=== PATIENT | male | born 1975 | race Caucasian/White ===

== ENCOUNTER 2017-04-28 17:07 | Emergency (ER) | payer OTHER ==
[2017-04-28] MEDS ORDERED: HYDROcodone/APAP 5-325MG 1 EACH TAB PO STA (17:17)
--- NOTE | 2017-04-28 17:21 | ED ---
Chest Pain HPI - General Chief Complaint: Chest Pain Stated Complaint: Rib Pain Time Seen by Provider: 04/28/17 17:08 Source: patient, EMS Mode of arrival: EMS - History of Present Illness Initial Comments: 42-year-old male patient presents to emergency department by EMS today for evaluation of left rib pain. Patient states that about 30 minutes ago he was up in a tree, he was standing on a branch attempting to bring down the limb above him. Patient states that the branch he was standing on cracked so he grabbed onto another branch and "bear hugged it ". Patient states that the branch dug into his ribs. Patient states that since then he has been having pain in his left ribs when he takes deep breaths, or moves at all. Patient denies any fall or other injuries. Patient denies any shortness of breath, abdominal pain, back pain, nausea, vomiting, dizziness, or weakness. - Related Data Previous Rx's Medication Instructions Recorded Hydrocodone/Acetaminophen [[place] 1 tab PO Q6HR PRN #15 tab 04/28/17 5-325] Ibuprofen 600 mg PO Q6H PRN #20 tablet 04/28/17 Allergies Allergy/AdvReac Type Severity Reaction Status Date / Time No Known Allergies Allergy Verified 04/28/17 17:42 Review of Systems ROS Statement: Those systems with pertinent positive or pertinent negative responses have been documented in the HPI. ROS Other: All systems not noted in ROS Statement are negative. Past Medical History Past Medical History: No Reported History History of Any Multi-Drug Resistant Organisms: None Reported Past Surgical History: Unable to Obtain Past Psychological History: No Psychological Hx Reported Smoking Status: Current every day smoker Past Alcohol Use History: Heavy Past Drug Use History: None Reported General Exam General appearance: alert, in no apparent distress Head exam: Present: atraumatic, normocephalic, normal inspection Eye exam: Present: normal appearance, PERRL, EOMI. Absent: scleral icterus, conjunctival injection, periorbital swelling Neck exam: Present: normal inspection, full ROM. Absent: tenderness, meningismus, lymphadenopathy Respiratory exam: Present: normal lung sounds bilaterally, other (Tenderness over the left seventh and eighth ribs near the midclavicular line). Absent: respiratory distress, wheezes, rales, rhonchi, stridor Cardiovascular Exam: Present: regular rate, normal rhythm, normal heart sounds. Absent: systolic murmur, diastolic murmur, rubs, gallop, clicks GI/Abdominal exam: Present: soft, normal bowel sounds. Absent: distended, tenderness, guarding, rebound, rigid Extremities exam: Present: normal inspection, full ROM, normal capillary refill. Absent: tenderness, pedal edema, joint swelling, calf tenderness Back exam: Present: normal inspection. Absent: tenderness, vertebral tenderness Neurological exam: Present: alert, oriented X3, CN II-XII intact Psychiatric exam: Present: normal affect, normal mood Skin exam: Present: warm, dry, intact, normal color. Absent: rash Course Vital Signs 04/28/17 04/28/17 17:08 18:05 Temperature 98.1 F 98.3 F Pulse Rate 73 66 Respiratory 20 20 Rate Blood Pressure 137/74 136/83 O2 Sat by Pulse 97 97 Oximetry Chest Pain MDM - MDM 42-year-old male patient presented to the emergency department for evaluation of left rib pain after injury. Chest x-ray was performed and showed no acute cardiopulmonary process, x-ray left ribs are obtained showed no acute osseous abnormalities. She'll be discharged home with prescription for ibuprofen as well as [place] for pain management. Patient also given instructions regarding coughing and deep breathing. Patient will be given incentive spirometer. Patient injected to follow-up with his primary care physician one to 2 days for recheck. Patient instructed to return for any new, worsening, or concerning symptoms. Patient verbalizes understanding and agrees with this plan. Disposition Clinical Impression: Rib pain on left side Disposition: HOME SELF-CARE Condition: Good Instructions: Costochondritis (ED) Additional Instructions: Splint area with pillow. Perform coughing and deep breathing exercises at least 10 times per hour all week. Follow up with primary care physician in one to 2 days for recheck. Return for any new, worsening, or concerning symptoms. Prescriptions: Hydrocodone/Acetaminophen [[place] 5-325] 1 tab PO Q6HR PRN #15 tab PRN Reason: Pain Ibuprofen 600 mg PO Q6H PRN #20 tablet PRN Reason: Pain Referrals: None,Stated [Primary Care Provider] - 1-2 days Time of Disposition: 18:22
--- NOTE | 2017-04-28 17:44 | XR ---
EXAMINATION TYPE: XR ribs LT w pa chest xray DATE OF EXAM: 04/28/2017 CLINICAL HISTORY: Chest and left-sided rib pain after fall from tree injury. TECHNIQUE: Single frontal view of the chest is obtained. A frontal and oblique images of the left-fan ed ribs are acquired. COMPARISON: None FINDINGS: There is no focal air space opacity, pleural effusion, or pneumothorax seen. The cardiac silhouette size is within normal limits. The osseous structures are intact. Dedicated images of the left-sided ribs show no acute displaced left-sided rib fracture. Overlying so ft tissue is unremarkable. IMPRESSION: No acute cardiopulmonary process. No acute displaced left-sided rib fractures are eviden t.
[2017-04-28 18:39] VITALS: BP 120/73; PULSE 64; RESP 18; TEMP 97.5
== END 2017-04-28 18:47 | disposition home or self-care (01) ==
LOC: EC 17:07
DX: R07.81 Pleurodynia (principal); F17.200 Nicotine dependence, unspecified, uncomplicated; X50.9XXA Other and unspecified overexertion or strenuous movements or postures, initial encounter; Y93.H2 Activity, gardening and landscaping
CPT/HCPCS: 99284

== ENCOUNTER 2017-12-24 16:56 | Emergency (ER) | payer OTHER ==
--- NOTE | 2017-12-24 17:19 | ED ---
General Adult HPI - General Source: patient, EMS, RN notes reviewed, old records reviewed Mode of arrival: EMS <Paul Washburn - Last Filed: 12/24/17 18:45> <Marcelino Renteria - Last Filed: 12/25/17 04:33> - General Chief complaint: Psychiatric Symptoms Stated complaint: EPS eval Time Seen by Provider: 12/24/17 17:14 - History of Present Illness Initial comments: This is a 43-year-old male the ER for evaluation. Patient comes in for suicidal thoughts, alcohol intoxication. Chest pain. Patient has no significant heart history. Symptoms for a week as far as chest pain. Patient presents secondary to mother's and has been suicidal since (Paul Washburn) - Related Data Home Medications Medication Instructions Recorded Confirmed No Known Home Medications [No 12/24/17 12/24/17 Known Home Medications] Allergies Allergy/AdvReac Type Severity Reaction Status Date / Time No Known Allergies Allergy Verified 12/24/17 17:18 Review of Systems ROS Other: All systems not noted in ROS Statement are negative. <Paul Washburn - Last Filed: 12/24/17 18:45> ROS Other: All systems not noted in ROS Statement are negative. <Marcelino Renteria - Last Filed: 12/25/17 04:33> ROS Statement: Those systems with pertinent positive or pertinent negative responses have been documented in the HPI. Past Medical History Past Medical History: No Reported History History of Any Multi-Drug Resistant Organisms: None Reported Past Surgical History: Unable to Obtain Past Psychological History: No Psychological Hx Reported Smoking Status: Current every day smoker Past Alcohol Use History: Heavy Past Drug Use History: None Reported <Paul Washburn - Last Filed: 12/24/17 18:45> General Exam General appearance: alert, in no apparent distress Head exam: Present: atraumatic, normocephalic, normal inspection Eye exam: Present: normal appearance, PERRL, EOMI. Absent: scleral icterus, conjunctival injection, periorbital swelling ENT exam: Present: normal exam, mucous membranes moist Neck exam: Present: normal inspection. Absent: tenderness, meningismus, lymphadenopathy Respiratory exam: Present: normal lung sounds bilaterally. Absent: respiratory distress, wheezes, rales, rhonchi, stridor Cardiovascular Exam: Present: regular rate, normal rhythm, normal heart sounds. Absent: systolic murmur, diastolic murmur, rubs, gallop, clicks GI/Abdominal exam: Present: soft, normal bowel sounds. Absent: distended, tenderness, guarding, rebound, rigid Extremities exam: Present: normal inspection, full ROM, normal capillary refill. Absent: tenderness, pedal edema, joint swelling, calf tenderness Back exam: Present: normal inspection Neurological exam: Present: alert, oriented X3, CN II-XII intact Psychiatric exam: Present: normal affect, normal mood Skin exam: Present: warm, dry, intact, normal color. Absent: rash <Paul Washburn - Last Filed: 12/24/17 18:45> Vital Signs 12/24/17 12/24/17 12/24/17 16:58 17:20 18:53 Temperature 97.6 F Pulse Rate 81 75 72 Respiratory 18 18 18 Rate Blood Pressure 175/119 146/90 142/77 O2 Sat by Pulse 97 96 Oximetry 12/24/17 12/24/17 12/24/17 19:25 20:20 22:27 Temperature Pulse Rate 68 82 87 Respiratory 16 16 16 Rate Blood Pressure 135/77 138/89 132/66 O2 Sat by Pulse 97 94 L 91 L Oximetry 12/24/17 12/25/17 12/25/17 23:25 00:20 02:12 Temperature Pulse Rate 94 88 87 Respiratory 17 16 15 Rate Blood Pressure 124/63 124/63 131/74 O2 Sat by Pulse 97 93 L 94 L Oximetry 12/25/17 02:20 Temperature Pulse Rate 88 Respiratory 16 Rate Blood Pressure 146/69 O2 Sat by Pulse 97 Oximetry EKG Findings - EKG Comments: EKG Findings:: EKG shows normal sinus rhythm rate of 66, VT 134, QRS 94, QTC 419 <Paul Washburn - Last Filed: 12/24/17 18:45> Medical Decision Making - Lab Data Result diagrams: 12/24/17 18:00 12/24/17 18:00 <Paul Washburn - Last Filed: 12/24/17 18:45> - Lab Data Result diagrams: 12/24/17 18:00 12/24/17 18:00 <Marcelino Renteria - Last Filed: 12/25/17 04:33> - Lab Data Lab Results 12/24/17 12/24/17 12/24/17 Range/Units 17:55 18:00 18:00 WBC 13.3 H (3.8-10.6) k/uL RBC 5.60 (4.30-5.90) m/uL Hgb 17.6 H (13.0-17.5) gm/dL Hct 52.5 (39.0-53.0) % MCV 93.6 (80.0-100.0) fL MCH 31.5 (25.0-35.0) pg MCHC 33.6 (31.0-37.0) g/dL RDW 13.0 (11.5-15.5) % Plt Count 300 (150-450) k/uL Neutrophils % 67 % Lymphocytes % 25 % Monocytes % 4 % Eosinophils % 2 % Basophils % 1 % Neutrophils # 8.9 H (1.3-7.7) k/uL Lymphocytes # 3.4 (1.0-4.8) k/uL Monocytes # 0.5 (0-1.0) k/uL Eosinophils # 0.3 (0-0.7) k/uL Basophils # 0.1 (0-0.2) k/uL PT (9.0-12.0) sec INR (<1.2) APTT (22.0-30.0) sec Sodium (137-145) mmol/L Potassium (3.5-5.1) mmol/L Chloride (98-107) mmol/L Carbon Dioxide (22-30) mmol/L Anion Gap mmol/L BUN (9-20) mg/dL Creatinine (0.66-1.25) mg/dL Est GFR (CKD-EPI)AfAm (>60 ml/min/1.73 sqM) Est GFR (CKD-EPI)NonAf (>60 ml/min/1.73 sqM) Glucose (74-99) mg/dL Calcium (8.4-10.2) mg/dL Magnesium (1.6-2.3) mg/dL Total Bilirubin (0.2-1.3) mg/dL AST (17-59) U/L ALT (21-72) U/L Alkaline Phosphatase (38-126) U/L Total Creatine Kinase 217 H (55-170) U/L CK-MB (CK-2) 1.3 (0.0-2.4) ng/mL CK-MB (CK-2) Rel Index 0.6 Troponin I <0.012 (0.000-0.034) ng/mL Total Protein (6.3-8.2) g/dL Albumin (3.5-5.0) g/dL Lipase (23-300) U/L Urine Opiates Screen Not Detected (NotDetected) Ur Oxycodone Screen Not Detected (NotDetected) Urine Methadone Screen Not Detected (NotDetected) Ur Propoxyphene Screen Not Detected (NotDetected) Ur Barbiturates Screen Not Detected (NotDetected) U Tricyclic Antidepress Not Detected (NotDetected) Ur Phencyclidine Scrn Not Detected (NotDetected) Ur Amphetamines Screen Not Detected (NotDetected) U Methamphetamines Scrn Not Detected (NotDetected) U Benzodiazepines Scrn Not Detected (NotDetected) Urine Cocaine Screen Not Detected (NotDetected) U Marijuana (THC) Screen Not Detected (NotDetected) 12/24/17 12/24/17 Range/Units 18:00 18:00 WBC (3.8-10.6) k/uL RBC (4.30-5.90) m/uL Hgb (13.0-17.5) gm/dL Hct (39.0-53.0) % MCV (80.0-100.0) fL MCH (25.0-35.0) pg MCHC (31.0-37.0) g/dL RDW (11.5-15.5) % Plt Count (150-450) k/uL Neutrophils % % Lymphocytes % % Monocytes % % Eosinophils % % Basophils % % Neutrophils # (1.3-7.7) k/uL Lymphocytes # (1.0-4.8) k/uL Monocytes # (0-1.0) k/uL Eosinophils # (0-0.7) k/uL Basophils # (0-0.2) k/uL PT 10.0 (9.0-12.0) sec INR 1.0 (<1.2) APTT 24.7 (22.0-30.0) sec Sodium 147 H (137-145) mmol/L Potassium 3.9 (3.5-5.1) mmol/L Chloride 104 (98-107) mmol/L Carbon Dioxide 23 (22-30) mmol/L Anion Gap 20 mmol/L BUN 8 L (9-20) mg/dL Creatinine 0.70 (0.66-1.25) mg/dL Est GFR (CKD-EPI)AfAm >90 (>60 ml/min/1.73 sqM) Est GFR (CKD-EPI)NonAf >90 (>60 ml/min/1.73 sqM) Glucose 82 (74-99) mg/dL Calcium 9.5 (8.4-10.2) mg/dL Magnesium 2.2 (1.6-2.3) mg/dL Total Bilirubin 0.3 (0.2-1.3) mg/dL AST 34 (17-59) U/L ALT 23 (21-72) U/L Alkaline Phosphatase 109 (38-126) U/L Total Creatine Kinase (55-170) U/L CK-MB (CK-2) (0.0-2.4) ng/mL CK-MB (CK-2) Rel Index Troponin I (0.000-0.034) ng/mL Total Protein 8.4 H (6.3-8.2) g/dL Albumin 5.1 H (3.5-5.0) g/dL Lipase 297 (23-300) U/L Urine Opiates Screen (NotDetected) Ur Oxycodone Screen (NotDetected) Urine Methadone Screen (NotDetected) Ur Propoxyphene Screen (NotDetected) Ur Barbiturates Screen (NotDetected) U Tricyclic Antidepress (NotDetected) Ur Phencyclidine Scrn (NotDetected) Ur Amphetamines Screen (NotDetected) U Methamphetamines Scrn (NotDetected) U Benzodiazepines Scrn (NotDetected) Urine Cocaine Screen (NotDetected) U Marijuana (THC) Screen (NotDetected) Disposition <Paul Washburn - Last Filed: 12/24/17 18:45> <Marcelino Renteria - Last Filed: 12/25/17 04:33> Clinical Impression: Alcohol intoxication, Adjustment reaction Disposition: HOME SELF-CARE Condition: Good Instructions: Alcohol Intoxication (ED), Mood Disorders (ED) Referrals: None,Stated [Primary Care Provider] - 1-2 days
[2017-12-24] MEDS ORDERED: SODIUM CHLORIDE 0.9% 1,000 ML IV STA (18:04)
[2017-12-24 18:12] LABS: Amphetamine Screen,Urine Not Detected (NotDetected); Barbiturate Screen,Urine Not Detected (NotDetected); Benzodiazepines Screen,Urine Not Detected (NotDetected); Cocaine Screen,Urine Not Detected (NotDetected); Methadone Screen, Urine Not Detected (NotDetected); Opiate Screen,Urine Not Detected (NotDetected); Oxycodone Screen, Urine Not Detected (NotDetected); Phencyclidine Screen,Urine Not Detected (NotDetected); Tricyclic Antidepressant,Urine Not Detected (NotDetected); Urn Cannabinoid Scrn Not Detected (NotDetected)
[2017-12-24 18:29] LABS: Basophils # (A) 0.1 k/uL (0-0.2); Basophils % (A) 1 %; Eosinophils # (A) 0.3 k/uL (0-0.7); Eosinophils % (A) 2 %; HCT 52.5 % (39.0-53.0); HGB 17.6 gm/dL (13.0-17.5); Lymphocytes # (A) 3.4 k/uL (1.0-4.8); Lymphocytes % (A) 25 %; MCH 31.5 pg (25.0-35.0); MCHC 33.6 g/dL (31.0-37.0); MCV 93.6 fL (80.0-100.0); Mean Platelet Volume 7.5; Monocytes # (A) 0.5 k/uL (0-1.0); Monocytes % (A) 4 %; Neutrophils # (A) 8.9 k/uL (1.3-7.7); Neutrophils % (A) 67 %; Platelet Count 300 k/uL (150-450); WBC 13.3 k/uL (3.8-10.6)
[2017-12-24 18:35] LABS: ALT 23 U/L (21-72); AST 34 U/L (17-59); Albumin 5.1 g/dL (3.5-5.0); Alkaline Phosphatase 109 U/L (38-126); Anion Gap 20 mmol/L; Blood Urea Nitrogen 8 mg/dL (9-20); Calcium 9.5 mg/dL (8.4-10.2); Carbon Dioxide 23 mmol/L (22-30); Chloride 104 mmol/L (98-107); Glucose 82 mg/dL (74-99); Lipase 297 U/L (23-300); Magnesium 2.2 mg/dL (1.6-2.3); Potassium 3.9 mmol/L (3.5-5.1); Sodium 147 mmol/L (137-145); Total Bilirubin 0.3 mg/dL (0.2-1.3); Total Protein 8.4 g/dL (6.3-8.2)
[2017-12-24 18:37] LABS: Creatine Kinase 217 U/L (55-170)
[2017-12-24 18:42] LABS: Partial Thromboplastin Time 24.7 sec (22.0-30.0)
[2017-12-24 18:50] LABS: Creatine Kinase MB 1.3 ng/mL (0.0-2.4); Troponin I <0.012 ng/mL (0.000-0.034)
--- NOTE | 2017-12-24 19:01 | XR ---
EXAMINATION TYPE: XR chest 2V DATE OF EXAM: 12/24/2017 COMPARISON: 04/28/2017 HISTORY: Chest pain TECHNIQUE: Frontal and lateral views of the chest are obtained. FINDINGS: Heart and mediastinum are normal. Lungs are clear of infiltrate. There is no pleural effus ion. Bony thorax is intact. IMPRESSION: No active cardiopulmonary disease. No change.
[2017-12-24] MEDS ORDERED: NICOTINE 21MG/24HR PATCH TRANSDERM STA (20:56)
[2017-12-25 02:21] VITALS: RESP 16
[2017-12-25 04:57] VITALS: BP 142/76; PULSE 96; TEMP 98
== END 2017-12-25 05:06 | disposition home or self-care (01) ==
LOC: EC 16:56
DX: F10.120 Alcohol abuse with intoxication, uncomplicated (principal); F43.20 Adjustment disorder, unspecified; R07.9 Chest pain, unspecified; F17.200 Nicotine dependence, unspecified, uncomplicated
CPT/HCPCS: 99285; 96360; 96361 ×8; 82075; 36415; 93005; 80053; 82550; 82553; 83690; 83735; 84484; 85025; 85610; 85730; 80306; 71046; S4990

== ENCOUNTER 2021-06-10 11:42 | Emergency (ER) | payer OTHER ==
[2021-06-10] MEDS ORDERED: SODIUM CHLORIDE 0.9% 1,000 ML IV STA (11:50)
[2021-06-10 12:08] LABS: Basophils # (A) 0.1 k/uL (0-0.2); Basophils % (A) 1 %; Eosinophils # (A) 0.3 k/uL (0-0.7); Eosinophils % (A) 4 %; HCT 48.1 % (39.0-53.0); HGB 15.8 gm/dL (13.0-17.5); Lymphocytes # (A) 1.8 k/uL (1.0-4.8); Lymphocytes % (A) 25 %; MCH 32.9 pg (25.0-35.0); MCHC 32.9 g/dL (31.0-37.0); Monocytes # (A) 0.4 k/uL (0-1.0); Monocytes % (A) 6 %; Neutrophils # (A) 4.3 k/uL (1.3-7.7); Neutrophils % (A) 61 %; Platelet Count 252 k/uL (150-450); RBC 4.81 m/uL (4.30-5.90); RDW 13.2 % (11.5-15.5)
--- NOTE | 2021-06-10 12:08 | ED ---
General Adult HPI - General Chief complaint: Chest Pain Stated complaint: ETOH/Chest pain Time Seen by Provider: 06/10/21 11:43 Source: patient, EMS, RN notes reviewed, old records reviewed Mode of arrival: EMS Limitations: no limitations - History of Present Illness Initial comments: 46-year-old male presenting with alcohol intoxication, and chest pain. Patient states he has central chest pain for the past several years. He has this every single day. He admits to consuming a significant amount of alcoholic beverages today. He denies any change in his chest pain. Does not radiate. He has no associated dyspnea. No lower extremity pain or swelling. No abdominal pain nausea or vomiting. - Related Data Home Medications Medication Instructions Recorded Confirmed No Known Home Medications 12/24/17 12/24/17 Allergies Allergy/AdvReac Type Severity Reaction Status Date / Time No Known Allergies Allergy Verified 12/24/17 17:18 Review of Systems ROS Statement: Those systems with pertinent positive or pertinent negative responses have been documented in the HPI. ROS Other: All systems not noted in ROS Statement are negative. Past Medical History Past Medical History: No Reported History History of Any Multi-Drug Resistant Organisms: None Reported Past Surgical History: Unable to Obtain Past Psychological History: No Psychological Hx Reported Smoking Status: Current every day smoker Past Alcohol Use History: Daily, Heavy Past Drug Use History: None Reported General Exam Limitations: no limitations General appearance: alert, appears intoxicated Head exam: Present: atraumatic, normocephalic Eye exam: Present: normal appearance, PERRL ENT exam: Present: mucous membranes dry Neck exam: Present: normal inspection. Absent: tenderness, meningismus Respiratory exam: Present: normal lung sounds bilaterally. Absent: respiratory distress, wheezes Cardiovascular Exam: Present: regular rate, normal rhythm GI/Abdominal exam: Present: soft. Absent: distended, tenderness Extremities exam: Present: normal inspection, normal capillary refill. Absent: pedal edema Neurological exam: Present: alert, oriented X3, CN II-XII intact. Absent: motor sensory deficit Psychiatric exam: Present: agitated Skin exam: Present: warm, dry, intact Course Vital Signs 06/10/21 06/10/21 11:43 12:29 Temperature 98.2 F Pulse Rate 77 89 Respiratory 18 20 Rate Blood Pressure 147/90 123/81 O2 Sat by Pulse 92 L 95 Oximetry EKG Findings - EKG Comments: EKG Findings:: EKG: Normal sinus rhythm, rate of 87, IN interval 136, QRS duration 90, QTC 438, no ST segment elevation. Medical Decision Making - Medical Decision Making 46-year-old male presenting with alcohol intoxication, no suicidal ideation. Patient cooperative with stable vitals. His workup includes EKG which is sinus rhythm without ST segment elevation or ischemic changes. Chest x-ray is clear without focal pneumonia or acute findings. He has a normal CBC, normal CMP, negative troponin. Given the fact that this is been ongoing for many years I feel he can continue to follow up as an outpatient regarding this chest pain. H is alcohol level is 340 he is coherent and able to give detailed history he is accompanied by his girlfriend. She will take the patient home. Return parameters are discussed. - Lab Data Result diagrams: 06/10/21 12:02 06/10/21 12:02 Lab Results 06/10/21 06/10/21 06/10/21 Range/Units 12:02 12:02 12:02 WBC 7.0 (3.8-10.6) k/uL RBC 4.81 (4.30-5.90) m/uL Hgb 15.8 (13.0-17.5) gm/dL Hct 48.1 (39.0-53.0) % MCV 100.0 (80.0-100.0) fL MCH 32.9 (25.0-35.0) pg MCHC 32.9 (31.0-37.0) g/dL RDW 13.2 (11.5-15.5) % Plt Count 252 (150-450) k/uL MPV 7.0 Neutrophils % 61 % Lymphocytes % 25 % Monocytes % 6 % Eosinophils % 4 % Basophils % 1 % Neutrophils # 4.3 (1.3-7.7) k/uL Lymphocytes # 1.8 (1.0-4.8) k/uL Monocytes # 0.4 (0-1.0) k/uL Eosinophils # 0.3 (0-0.7) k/uL Basophils # 0.1 (0-0.2) k/uL PT 10.0 (9.0-12.0) sec INR 0.9 (<1.2) APTT 25.0 (22.0-30.0) sec Sodium 141 (137-145) mmol/L Potassium 4.0 (3.5-5.1) mmol/L Chloride 104 (98-107) mmol/L Carbon Dioxide 24 (22-30) mmol/L Anion Gap 13 mmol/L BUN 4 L (9-20) mg/dL Creatinine 0.62 L (0.66-1.25) mg/dL Est GFR (CKD-EPI)AfAm >90 (>60 ml/min/1.73 sqM) Est GFR (CKD-EPI)NonAf >90 (>60 ml/min/1.73 sqM) Glucose 126 H (74-99) mg/dL Calcium 9.1 (8.4-10.2) mg/dL Magnesium 2.0 (1.6-2.3) mg/dL Total Bilirubin 0.5 (0.2-1.3) mg/dL AST 56 (17-59) U/L ALT 37 (4-49) U/L Alkaline Phosphatase 103 (38-126) U/L Troponin I (0.000-0.034) ng/mL Total Protein 7.4 (6.3-8.2) g/dL Albumin 4.5 (3.5-5.0) g/dL Lipase 220 (23-300) U/L Serum Alcohol 344 H* mg/dL 06/10/21 Range/Units 12:02 WBC (3.8-10.6) k/uL RBC (4.30-5.90) m/uL Hgb (13.0-17.5) gm/dL Hct (39.0-53.0) % MCV (80.0-100.0) fL MCH (25.0-35.0) pg MCHC (31.0-37.0) g/dL RDW (11.5-15.5) % Plt Count (150-450) k/uL MPV Neutrophils % % Lymphocytes % % Monocytes % % Eosinophils % % Basophils % % Neutrophils # (1.3-7.7) k/uL Lymphocytes # (1.0-4.8) k/uL Monocytes # (0-1.0) k/uL Eosinophils # (0-0.7) k/uL Basophils # (0-0.2) k/uL PT (9.0-12.0) sec INR (<1.2) APTT (22.0-30.0) sec Sodium (137-145) mmol/L Potassium (3.5-5.1) mmol/L Chloride (98-107) mmol/L Carbon Dioxide (22-30) mmol/L Anion Gap mmol/L BUN (9-20) mg/dL Creatinine (0.66-1.25) mg/dL Est GFR (CKD-EPI)AfAm (>60 ml/min/1.73 sqM) Est GFR (CKD-EPI)NonAf (>60 ml/min/1.73 sqM) Glucose (74-99) mg/dL Calcium (8.4-10.2) mg/dL Magnesium (1.6-2.3) mg/dL Total Bilirubin (0.2-1.3) mg/dL AST (17-59) U/L ALT (4-49) U/L Alkaline Phosphatase (38-126) U/L Troponin I <0.012 (0.000-0.034) ng/mL Total Protein (6.3-8.2) g/dL Albumin (3.5-5.0) g/dL Lipase (23-300) U/L Serum Alcohol mg/dL Disposition Clinical Impression: Chest pain, Alcohol abuse Disposition: HOME SELF-CARE Condition: Fair Instructions (If sedation given, give patient instructions): Chest Pain (ED), Alcohol Intoxication (ED) Additional Instructions: Please return with worsening or changing symptoms. Please follow up with her primary care physician, You have been provided information regarding AA. Is patient prescribed a controlled substance at d/c from ED?: No Referrals: None,Stated [Primary Care Provider] - 1-2 days Vaishali Martinez MD [REFERRING] - 1-2 days Time of Disposition: 12:56
[2021-06-10 12:21] LABS: INR 0.9 (<1.2)
[2021-06-10 12:23] LABS: ALT 37 U/L (4-49); AST 56 U/L (17-59); African American GFR (CKD) >90 (>60 ml/min/1.73 sqM); Albumin 4.5 g/dL (3.5-5.0); Alkaline Phosphatase 103 U/L (38-126); Anion Gap 13 mmol/L; Blood Urea Nitrogen 4 mg/dL (9-20); Calcium 9.1 mg/dL (8.4-10.2); Carbon Dioxide 24 mmol/L (22-30); Chloride 104 mmol/L (98-107); Glucose 126 mg/dL (74-99); Lipase 220 U/L (23-300); Non-African American GFR(CKD) >90 (>60 ml/min/1.73 sqM); Sodium 141 mmol/L (137-145); Total Bilirubin 0.5 mg/dL (0.2-1.3); Total Protein 7.4 g/dL (6.3-8.2)
--- NOTE | 2021-06-10 12:42 | XR ---
EXAMINATION TYPE: XR chest 2V DATE OF EXAM: 06/10/2021 COMPARISON: 12/24/2017 TECHNIQUE: PA and lateral views submitted. HISTORY: Chest pain FINDINGS: The lungs are clear and there is no pneumothorax, pleural effusion, or focal pneumonia. Heart size normal. No overt failure. Chronic rib deformities and lower involving the right lower rib cage. IMPRESSION: 1. No acute process.
[2021-06-10 12:47] LABS: Alcohol 344 mg/dL
[2021-06-10 13:07] VITALS: BP 120/78; PULSE 81; RESP 16; TEMP 98.1
== END 2021-06-10 13:05 | disposition home or self-care (01) ==
LOC: EC 11:42
DX: R07.9 Chest pain, unspecified (principal); F10.10 Alcohol abuse, uncomplicated; F17.200 Nicotine dependence, unspecified, uncomplicated; Y90.8 Blood alcohol level of 240 mg/100 ml or more
CPT/HCPCS: 36415; 93005; 80053; 83690; 83735; 84484; 85025; 85610; 85730; 71046; 99285; 96360; G0480; 80320

== ENCOUNTER 2021-07-12 21:29 | Emergency (ER) | payer OTHER ==
[2021-07-12 21:53] LABS: Glucose,Whole Blood 98 mg/dL (75-99)
--- NOTE | 2021-07-12 22:20 | ED ---
Psych HPI <Jermain Davison - Last Filed: 07/13/21 09:51> - General Source: EMS, RN notes reviewed, old records reviewed Mode of arrival: EMS Limitations: altered mental status - History of Present Illness MD Complaint: suicidal ideation, feels depressed -: unknown Associated Psychiatric Symptoms: depression, suicidal ideation History of same: Yes Quality: intermittent, getting worse Improves With: none Worsens With: none Context: recent alcohol abuse Associated Symptoms: denies other symptoms Treatments Prior to Arrival: placed on mental health hold If Self Harm: admits thoughts of self harm <Paul Washburn - Last Filed: 07/26/21 02:34> - General Chief Complaint: Psychiatric Symptoms Stated Complaint: Mental Health Time Seen by Provider: 07/12/21 22:18 - History of Present Illness Initial Comments: This is a 46-year-old male to the emergency. Patient has a for psychiatric evaluation and treatment. Patient is under severe stress patient also has significant history of alcohol abuse (Paul Washburn) - Related Data Home Medications Medication Instructions Recorded Confirmed No Known Home Medications 12/24/17 07/12/21 Allergies Allergy/AdvReac Type Severity Reaction Status Date / Time No Known Allergies Allergy Verified 07/12/21 22:47 Review of Systems ROS Other: All systems not noted in ROS Statement are negative. <Jermain Davison - Last Filed: 07/13/21 09:51> ROS Other: All systems not noted in ROS Statement are negative. <Paul Washburn - Last Filed: 07/26/21 02:34> ROS Statement: Those systems with pertinent positive or pertinent negative responses have been documented in the HPI. Past Medical History Past Medical History: No Reported History History of Any Multi-Drug Resistant Organisms: None Reported Past Surgical History: Unable to Obtain Past Psychological History: No Psychological Hx Reported Smoking Status: Current every day smoker Past Alcohol Use History: Daily, Heavy Past Drug Use History: None Reported <Paul Washburn - Last Filed: 07/26/21 02:34> General Exam Limitations: altered mental status General appearance: appears intoxicated, anxious Head exam: Present: atraumatic, normocephalic, normal inspection Eye exam: Present: normal appearance, PERRL, EOMI. Absent: scleral icterus, conjunctival injection, periorbital swelling ENT exam: Present: normal exam, mucous membranes moist Neck exam: Present: normal inspection. Absent: tenderness, meningismus, lymphadenopathy Respiratory exam: Present: normal lung sounds bilaterally. Absent: respiratory distress, wheezes, rales, rhonchi, stridor Cardiovascular Exam: Present: regular rate, normal rhythm, normal heart sounds. Absent: systolic murmur, diastolic murmur, rubs, gallop, clicks GI/Abdominal exam: Present: soft, normal bowel sounds. Absent: distended, tenderness, guarding, rebound, rigid Extremities exam: Present: normal inspection, full ROM, normal capillary refill. Absent: tenderness, pedal edema, joint swelling, calf tenderness Back exam: Present: normal inspection Neurological exam: Present: alert, oriented X3, CN II-XII intact Psychiatric exam: Present: normal affect, normal mood Skin exam: Present: warm, dry, intact, normal color. Absent: rash <Paul Washburn - Last Filed: 07/26/21 02:34> Course <Paul Washburn - Last Filed: 07/26/21 02:34> Vital Signs 07/12/21 07/13/21 07/13/21 22:03 02:28 03:00 Temperature 97.6 F Pulse Rate 62 Respiratory 16 18 18 Rate Blood Pressure 116/71 O2 Sat by Pulse 97 Oximetry 07/13/21 07/13/21 07/13/21 04:00 05:00 06:30 Temperature 97.5 F L Pulse Rate 60 Respiratory 18 18 18 Rate Blood Pressure 103/62 O2 Sat by Pulse 97 Oximetry 07/13/21 07/13/21 07:17 10:34 Temperature Pulse Rate 63 66 Respiratory 18 18 Rate Blood Pressure 119/86 120/69 O2 Sat by Pulse 98 98 Oximetry - Reevaluation(s) Reevaluation #1: Medical record is reviewed Patient was admitted out to lose clinically sober Patient stable for psychiatric evaluation (Paul Washburn) Medical Decision Making <Jermain Davison - Last Filed: 07/13/21 09:51> <Paul Washburn - Last Filed: 07/26/21 02:34> - Medical Decision Making Patient was invited by EPS. They recommended discharge. He did discuss safety plan. Patient is agreeable. (Jermain Davison) 46 male be discharged home after being seen evaluation psychiatry here in the ER (Paul Washburn) - Lab Data Lab Results 07/12/21 Range/Units 21:44 POC Glucose (mg/dL) 98 (75-99) mg/dL POC Glu Helicopter Officer ID Bertin Harmon Disposition Is patient prescribed a controlled substance at d/c from ED?: No <Jermain Davison - Last Filed: 07/13/21 09:51> Is patient prescribed a controlled substance at d/c from ED?: No <Paul Washburn - Last Filed: 07/26/21 02:34> Clinical Impression: Alcoholic intoxication, Suicidal ideation Disposition: HOME SELF-CARE Condition: Good Instructions (If sedation given, give patient instructions): Alcohol Intoxication (ED) Referrals: None,Stated [Primary Care Provider] - 1-2 days
[2021-07-13 02:29] VITALS: RESP 18
[2021-07-13 07:17] VITALS: TEMP 97.5
[2021-07-13 10:35] VITALS: BP 120/69; PULSE 66
== END 2021-07-13 10:34 | disposition home or self-care (01) ==
LOC: EC 21:29
DX: R45.851 Suicidal ideations (principal); F10.129 Alcohol abuse with intoxication, unspecified; F17.200 Nicotine dependence, unspecified, uncomplicated; Y90.9 Presence of alcohol in blood, level not specified
CPT/HCPCS: 36415; 99285

== ENCOUNTER 2021-08-06 21:25 | Emergency (ER) | payer OTHER ==
--- NOTE | 2021-08-06 21:29 | ED ---
Alcohol HPI - General Stated Complaint: ETOH Time Seen by Provider: 08/06/21 21:27 Source: RN notes reviewed, old records reviewed Mode of arrival: EMS Limitations: no limitations - History of Present Illness Initial Comments: This is a 46-year-old male presents today for evaluation. Patient presents to be follow significant alcohol intoxication weakness today patient no nausea vomiting intoxication currently. He was no medical history takes no medications MD Complaint: alcohol intoxication, alcohol dependence Last Drink: just [employer] REP -: hour(s) Previous Visits for Alcohol Intoxication?: Yes Recent Trauma: Yes Associated Symptoms: denies other symptoms Treatments Prior to Arrival: none Chronic Alcohol Use: Yes - Related Data Home Medications Medication Instructions Recorded Confirmed No Known Home Medications 12/24/17 08/06/21 Allergies Allergy/AdvReac Type Severity Reaction Status Date / Time No Known Allergies Allergy Verified 08/06/21 22:25 Review of Systems ROS Statement: Those systems with pertinent positive or pertinent negative responses have been documented in the HPI. ROS Other: All systems not noted in ROS Statement are negative. Past Medical History Past Medical History: No Reported History History of Any Multi-Drug Resistant Organisms: None Reported Past Surgical History: Unable to Obtain Past Psychological History: No Psychological Hx Reported Smoking Status: Current every day smoker Past Alcohol Use History: Daily, Heavy Past Drug Use History: None Reported General Exam General appearance: alert, in no apparent distress, anxious Head exam: Present: atraumatic, normocephalic, normal inspection Eye exam: Present: normal appearance, PERRL, EOMI. Absent: scleral icterus, conjunctival injection, periorbital swelling ENT exam: Present: normal exam, mucous membranes moist Neck exam: Present: normal inspection. Absent: tenderness, meningismus, lymphadenopathy Respiratory exam: Present: normal lung sounds bilaterally. Absent: respiratory distress, wheezes, rales, rhonchi, stridor Cardiovascular Exam: Present: regular rate, normal rhythm, normal heart sounds. Absent: systolic murmur, diastolic murmur, rubs, gallop, clicks GI/Abdominal exam: Present: soft, normal bowel sounds. Absent: distended, tenderness, guarding, rebound, rigid Extremities exam: Present: normal inspection, full ROM, normal capillary refill. Absent: tenderness, pedal edema, joint swelling, calf tenderness Back exam: Present: normal inspection Neurological exam: Present: alert, oriented X3, CN II-XII intact Psychiatric exam: Present: normal affect, normal mood Skin exam: Present: warm, dry, intact, normal color. Absent: rash Course Vital Signs 08/06/21 08/06/21 08/07/21 21:29 23:33 05:33 Temperature 98.2 F Pulse Rate 84 84 74 Respiratory 22 22 16 Rate Blood Pressure 169/109 156/84 O2 Sat by Pulse 99 96 96 Oximetry - Reevaluation(s) Reevaluation #1: Medical records reviewed Patient has significant improvement here in the emergency department Patient informed results and questions answered Reevaluation #2: Patient currently awake alert able ambulate without difficulty Medical Decision Making - Medical Decision Making 46 male to the emergency department for evaluation of severe alcohol intoxication. Not homicidal or suicidal and: Without significant complaint. Patient to be discharged home - Lab Data Result diagrams: 08/07/21 00:34 08/07/21 00:34 Lab Results 08/07/21 08/07/21 Range/Units 00:34 00:34 WBC 7.3 (3.8-10.6) k/uL RBC 4.95 (4.30-5.90) m/uL Hgb 15.9 (13.0-17.5) gm/dL Hct 48.7 (39.0-53.0) % MCV 98.5 (80.0-100.0) fL MCH 32.0 (25.0-35.0) pg MCHC 32.5 (31.0-37.0) g/dL RDW 13.5 (11.5-15.5) % Plt Count 289 (150-450) k/uL MPV 6.7 Neutrophils % 44 % Lymphocytes % 43 % Monocytes % 4 % Eosinophils % 5 % Basophils % 1 % Neutrophils # 3.2 (1.3-7.7) k/uL Lymphocytes # 3.1 (1.0-4.8) k/uL Monocytes # 0.3 (0-1.0) k/uL Eosinophils # 0.4 (0-0.7) k/uL Basophils # 0.1 (0-0.2) k/uL Sodium 141 (137-145) mmol/L Potassium 3.9 (3.5-5.1) mmol/L Chloride 104 (98-107) mmol/L Carbon Dioxide 28 (22-30) mmol/L Anion Gap 9 mmol/L BUN 5 L (9-20) mg/dL Creatinine 0.56 L (0.66-1.25) mg/dL Est GFR (CKD-EPI)AfAm >90 (>60 ml/min/1.73 sqM) Est GFR (CKD-EPI)NonAf >90 (>60 ml/min/1.73 sqM) Glucose 93 (74-99) mg/dL Calcium 8.6 (8.4-10.2) mg/dL Phosphorus 4.9 H (2.5-4.5) mg/dL Magnesium 2.0 (1.6-2.3) mg/dL Total Bilirubin 0.2 (0.2-1.3) mg/dL AST 56 (17-59) U/L ALT 31 (4-49) U/L Alkaline Phosphatase 101 (38-126) U/L Total Protein 7.4 (6.3-8.2) g/dL Albumin 4.2 (3.5-5.0) g/dL Lipase 279 (23-300) U/L Serum Alcohol 321 H* mg/dL Disposition Clinical Impression: Alcoholic intoxication Disposition: HOME SELF-CARE Condition: Fair Instructions (If sedation given, give patient instructions): Alcohol Intoxication (ED) Is patient prescribed a controlled substance at d/c from ED?: No Referrals: None,Stated [Primary Care Provider] - 1-2 days
[2021-08-06 21:33] VITALS: TEMP 98.2
[2021-08-07] MEDS ORDERED: SODIUM CHLORIDE 0.9% 500 ML 500 ML IV STA
[2021-08-07] MEDS ORDERED: SODIUM CHLORIDE 0.9% 1,000 ML IV STA ×2
[2021-08-07 00:56] LABS: Basophils # (A) 0.1 k/uL (0-0.2); Basophils % (A) 1 %; Eosinophils # (A) 0.4 k/uL (0-0.7); Eosinophils % (A) 5 %; HCT 48.7 % (39.0-53.0); HGB 15.9 gm/dL (13.0-17.5); Lymphocytes # (A) 3.1 k/uL (1.0-4.8); Lymphocytes % (A) 43 %; MCHC 32.5 g/dL (31.0-37.0); MCV 98.5 fL (80.0-100.0); Mean Platelet Volume 6.7; Monocytes # (A) 0.3 k/uL (0-1.0); Monocytes % (A) 4 %; Neutrophils # (A) 3.2 k/uL (1.3-7.7); Neutrophils % (A) 44 %; Platelet Count 289 k/uL (150-450); RBC 4.95 m/uL (4.30-5.90); RDW 13.5 % (11.5-15.5); WBC 7.3 k/uL (3.8-10.6)
[2021-08-07 01:12] LABS: ALT 31 U/L (4-49); AST 56 U/L (17-59); African American GFR (CKD) >90 (>60 ml/min/1.73 sqM); Albumin 4.2 g/dL (3.5-5.0); Alkaline Phosphatase 101 U/L (38-126); Anion Gap 9 mmol/L; Blood Urea Nitrogen 5 mg/dL (9-20); Calcium 8.6 mg/dL (8.4-10.2); Carbon Dioxide 28 mmol/L (22-30); Chloride 104 mmol/L (98-107); Glucose 93 mg/dL (74-99); Lipase 279 U/L (23-300); Non-African American GFR(CKD) >90 (>60 ml/min/1.73 sqM); Phosphorus 4.9 mg/dL (2.5-4.5); Potassium 3.9 mmol/L (3.5-5.1); Sodium 141 mmol/L (137-145); Total Bilirubin 0.2 mg/dL (0.2-1.3); Total Protein 7.4 g/dL (6.3-8.2)
[2021-08-07 01:36] LABS: Alcohol 321 mg/dL
[2021-08-07 06:18] VITALS: BP 156/84; PULSE 74; RESP 16
== END 2021-08-07 06:23 | disposition home or self-care (01) ==
LOC: EC 21:25
DX: F10.129 Alcohol abuse with intoxication, unspecified (principal); F17.200 Nicotine dependence, unspecified, uncomplicated; Y90.8 Blood alcohol level of 240 mg/100 ml or more
CPT/HCPCS: 99285; 96360; 96361 ×5; 36415; 80053; 83690; 83735; 84100; 85025; G0480; 80320

== ENCOUNTER 2022-01-07 17:52 | Observation (INO) | payer OTHER ==
[2022-01-07] MEDS ORDERED: SODIUM CHLORIDE 0.9% 1,000 ML IV STA (18:28)
[2022-01-07] MEDS ORDERED: THIAMINE 100 MG/ML 2 ML VIAL IM STA (18:28)
[2022-01-07] MEDS ORDERED: LORazepam 2 MG/ML INJ IV PRN ×3 (18:28)
--- NOTE | 2022-01-07 18:41 | ED ---
General Adult HPI - General Chief complaint: Alcohol Stated complaint: ETOH Time Seen by Provider: 01/07/22 18:20 Source: patient, EMS, RN notes reviewed, old records reviewed Mode of arrival: EMS Limitations: altered mental status - History of Present Illness Initial comments: Patient is a 46 female who presents emergency Department complaining of alcohol intoxication as well as suicidal ideation. Was found wandering around and called EMS. States he has been having thoughts when her himself. When I discussed this with the patient, he does endorse thoughts point hurt himself but denies any attempts or plans. States she is mad at his sister has had thoughts of going to hurt her. Denies any visual or auditory hallucinations. Denies any history of alcohol withdrawal. Endorses drinking over a fifth of alcohol this evening. Denies any other drug use other than tobacco. Denies any chest pain, shortness breath, abdominal pain, nausea, vomiting. His no other acute complaint at this time. Presents for acute intoxication as well as suicidal ideations. - Related Data Home Medications Medication Instructions Recorded Confirmed No Known Home Medications 12/24/17 01/07/22 Allergies Allergy/AdvReac Type Severity Reaction Status Date / Time No Known Allergies Allergy Verified 01/07/22 18:29 Review of Systems ROS Statement: Those systems with pertinent positive or pertinent negative responses have been documented in the HPI. Review of Systems: CONST: Denies fever EYES: Denies blurry vision ENT: Denies nasal congestion C/V: Denies Chest pain RESP: Denies shortness of breath GI: Denies abdominal pain : Denies dysuria SKIN: Denies rash. MSK: Denies joint pain. NEURO: Denies headache PSYCH: Denies homicidal ideations/plans/attempts. Denies visual or auditory hallucinations. He endorses suicidal ideations. Denies suicide plans or attempts. ROS Other: All systems not noted in ROS Statement are negative. Past Medical History Past Medical History: No Reported History History of Any Multi-Drug Resistant Organisms: None Reported Past Surgical History: Unable to Obtain Past Psychological History: No Psychological Hx Reported Smoking Status: Current every day smoker Past Alcohol Use History: Daily, Heavy Past Drug Use History: None Reported General Exam Limitations: altered mental status Course Vital Signs 01/07/22 01/07/22 01/07/22 18:07 19:49 21:15 Temperature 98.7 F Pulse Rate 76 84 78 Respiratory 17 18 18 Rate Blood Pressure 132/80 132/80 138/76 O2 Sat by Pulse 99 97 97 Oximetry Medical Decision Making - Medical Decision Making Based on patient's presentation and physical exam, I do believe he is acutely intoxicated with alcohol. Is also having suicidal ideations. He will be placed in green scrubs. Suicide precautions were ordered. Sitter was ordered. We will obtain a UDS as well as alcohol level and basic labs. He'll be given IV fluids. He was in agreement this plan. CIWA protocol is ordered. Patient's lavatory studies are remarkable for a slightly elevated potassium at 5.3 for which he is receiving IV fluids. UDS was negative. Alcohol level is 357. Remainder of the labs are unremarkable. On reevaluation, patient remains stable. Vital signs are within normal limits. I updated him that he will be admitted where psychiatry will then evaluate the patient due to his acute alcohol intoxication. He was in agreement this plan. I spoke with the admitting physician, Dr. Trevino who accepted the admission. Psychiatry was consulted. - Lab Data Result diagrams: 01/07/22 18:40 01/07/22 18:40 Lab Results 01/07/22 01/07/22 01/07/22 Range/Units 18:38 18:40 18:40 WBC 10.6 (3.8-10.6) k/uL RBC 4.91 (4.30-5.90) m/uL Hgb 16.1 (13.0-17.5) gm/dL Hct 50.8 (39.0-53.0) % MCV 103.5 H (80.0-100.0) fL MCH 32.8 (25.0-35.0) pg MCHC 31.6 (31.0-37.0) g/dL RDW 12.8 (11.5-15.5) % Plt Count 259 (150-450) k/uL MPV 7.2 Macrocytosis Slight Sodium 144 (137-145) mmol/L Potassium 5.3 H (3.5-5.1) mmol/L Chloride 105 (98-107) mmol/L Carbon Dioxide 31 H (22-30) mmol/L Anion Gap 8 mmol/L BUN 7 L (9-20) mg/dL Creatinine 0.69 (0.66-1.25) mg/dL Est GFR (CKD-EPI)AfAm >90 (>60 ml/min/1.73 sqM) Est GFR (CKD-EPI)NonAf >90 (>60 ml/min/1.73 sqM) Glucose 98 (74-99) mg/dL Calcium 8.6 (8.4-10.2) mg/dL Urine Opiates Screen Not Detected (NotDetected) Ur Oxycodone Screen Not Detected (NotDetected) Urine Methadone Screen Not Detected (NotDetected) Ur Propoxyphene Screen Not Detected (NotDetected) Ur Barbiturates Screen Not Detected (NotDetected) U Tricyclic Antidepress Not Detected (NotDetected) Ur Phencyclidine Scrn Not Detected (NotDetected) Ur Amphetamines Screen Not Detected (NotDetected) U Methamphetamines Scrn Not Detected (NotDetected) U Benzodiazepines Scrn Not Detected (NotDetected) Urine Cocaine Screen Not Detected (NotDetected) U Marijuana (THC) Screen Not Detected (NotDetected) Serum Alcohol 357 H* mg/dL Disposition Clinical Impression: Alcohol intoxication, Suicidal ideations Disposition: ADMITTED IP TO THIS HOSP Condition: Stable
[2022-01-07 18:49] LABS: HCT 50.8 % (39.0-53.0); HGB 16.1 gm/dL (13.0-17.5); MCH 32.8 pg (25.0-35.0); MCHC 31.6 g/dL (31.0-37.0); MCV 103.5 fL (80.0-100.0); Macrocytosis Slight; Mean Platelet Volume 7.2; Platelet Count 259 k/uL (150-450); RBC 4.91 m/uL (4.30-5.90); RDW 12.8 % (11.5-15.5); WBC 10.6 k/uL (3.8-10.6)
[2022-01-07 19:03] LABS: African American GFR (CKD) >90 (>60 ml/min/1.73 sqM); Anion Gap 8 mmol/L; Blood Urea Nitrogen 7 mg/dL (9-20); Calcium 8.6 mg/dL (8.4-10.2); Carbon Dioxide 31 mmol/L (22-30); Chloride 105 mmol/L (98-107); Glucose 98 mg/dL (74-99); Non-African American GFR(CKD) >90 (>60 ml/min/1.73 sqM); Sodium 144 mmol/L (137-145)
[2022-01-07 19:15] LABS: Amphetamine Screen,Urine Not Detected (NotDetected); Barbiturate Screen,Urine Not Detected (NotDetected); Benzodiazepines Screen,Urine Not Detected (NotDetected); Cocaine Screen,Urine Not Detected (NotDetected); Methadone Screen, Urine Not Detected (NotDetected); Opiate Screen,Urine Not Detected (NotDetected); Oxycodone Screen, Urine Not Detected (NotDetected); Phencyclidine Screen,Urine Not Detected (NotDetected); Tricyclic Antidepressant,Urine Not Detected (NotDetected); Urn Cannabinoid Scrn Not Detected (NotDetected)
[2022-01-07 19:22] LABS: Potassium 5.3 mmol/L (3.5-5.1)
[2022-01-07 19:23] LABS: Alcohol 357 mg/dL
[2022-01-07] MEDS ORDERED: ONDANSETRON 4 MG/2 ML VIAL IVP PRN (19:37)
[2022-01-07] MEDS ORDERED: NALOXONE 0.4 MG/ML 1 ML VIAL IV PRN (19:37)
[2022-01-07] MEDS: SODIUM CHLORIDE 0.9% 1,000 ML IV SCH (21:21)
[2022-01-08] MEDS: SODIUM CHLORIDE 0.9% 1,000 ML IV SCH ×2 (08:20→16:07)
[2022-01-08] MEDS: THIAMINE 100 MG TAB PO SCH ×2 (08:20→16:21)
[2022-01-08 08:50] LABS: Basophils # (A) 0.11 X 10*3/uL (0.00-0.10); Basophils % (A) 1.3 %; Eosinophils # (A) 0.21 X 10*3/uL (0.04-0.35); Eosinophils % (A) 2.4 %; HCT 44.5 % (39.6-50.0); HGB 14.7 g/dL (13.0-17.0); Immature Grans, Automated 0.2 %; Lymphocytes # (A) 2.58 X 10*3/uL (0.90-5.00); Lymphocytes % (A) 29.5 %; MCH 32.8 pg (27.0-32.0); MCV 99.3 fL (80.0-97.0); Mean Platelet Volume 9.6 fL (9.5-12.2); Monocytes # (A) 0.54 X 10*3/uL (0.20-1.00); Monocytes % (A) 6.2 %; NRBC Per 100 WBC 0 /100 WBCS (0.0-0.0); Neutrophils % (A) 60.4 %; Platelet Count 243 X 10*3/uL (140-440); RBC 4.48 X 10*6/uL (4.40-5.60); WBC 8.76 X 10*3/uL (4.50-10.00)
[2022-01-08 08:56] LABS: African American GFR (CKD) 131.2 (60.0-200.0); Anion Gap 21.8 mmol/L (10.00-18.00); Blood Urea Nitrogen 7.7 mg/dL (9.0-27.0); Calcium 8.7 mg/dL (8.7-10.3); Carbon Dioxide 14.2 mmol/L (20.0-27.5); Non-African American GFR(CKD) 113.2 (60.0-200.0); Potassium 4.6 mmol/L (3.5-5.5)
--- NOTE | 2022-01-08 13:07 | P.CN ---
Psychiatric Consult - . Consult:: IDENTIFYING DATA: Patient is a 46-year-old male who is admitted for alcohol detox in psychiatry is consulted for suicidal ideations HPI: States that he is here because "I was drinking, I must have flipped out" states that he usually drinks a few beers every other day, and that prior to hospitalization he drank half a pint at least. States that he drank because he was bored at home after having the weekend off. States that his sister told him that he could not come back home unless he stopped drinking. States that he was 9 months sober, and then he relapsed after his mom . States that he was on Antabuse in the past which worked for him. He denies current or past suicidal ideations, homicidal ideations, suicide attempts, family history of suicide attempts, hallucinations, access to guns or weapons, kae, significant depression. PAST PSYCHIATRIC HISTORY: States that he was on Antabuse in the past. Denies any other psychiatric history PMH:[denies] ALLERGIES: as per EMR CHEMICAL DEPENDENCY HISTORY: as per HPI FAMILY PSYCHIATRIC/SUBSTANCE USE HISTORY: Sister also drinks alcohol SOCIAL HISTORY: Lives with his sister. No legal issues. Works full-time MENTAL STATUS EXAM: General Appearance: 46-year-old male who appears older than stated age. Balding brown hair with patterson. Tattoo on left arm. Dressed appropriately in hospital gown. Lying in bed Behavior: Cooperative Speech: Patient's speech is [fluent and nonpressured.] Mood/Affect: Patient reports their mood is "sleeping all day", affect is full range, he smiled and laughed several times during the interview Suicidality/Homicidality: Patient denies having any homicidal ideation intent or plan. [Denies any suicidal ideations intent or plan] Perceptions: Patient denies any visual hallucinations [and denies any auditory hallucinations] Though content/process: [There is no evidence of any delusional thought content and thought process is linear and goal-directed.] Memory and concentration: AOX3 Judgment and insight: Impaired IMPRESSIONS: Meets criteria for alcohol use disorder. He likely made the suicidal statement while he was intoxicated. On interview today, he has full range of affect, is not suicidal, and objectively does not show signs of depression. Moreover, he has multiple protective factors for suicide including lack of suicide attempt, lack of family history of suicide attempt, lack of access to guns or weapons, and having supports in his life. PLAN: -DC sitter - suicidal statement was likely given while intoxicated, current not suicidal, does not appear to be depressed objectively, not a risk of harm to self -encouraged to seek treatment for alcohol use via medications (antabuse, naltrexone, vivitrol, acamprosate) and therapy -psychiatry will sign off 01/08/22 13:00
[2022-01-09] MEDS: SODIUM CHLORIDE 0.9% 1,000 ML IV SCH (01:32)
[2022-01-09 08:03] VITALS: RESP 18
[2022-01-09] MEDS: THIAMINE 100 MG TAB PO SCH (08:24)
[2022-01-09 11:53] VITALS: BMI 16.7
[2022-01-09 14:03] VITALS: BP 132/69; PULSE 66; TEMP 98.5
[2022-01-09] MEDS ORDERED: ACAMPROSATE CALCIUM 333 MG TABLET.DR PO SCH (16:00)
--- NOTE | 2022-01-09 20:23 | HP ---
HISTORY AND PHYSICAL DATE OF SERVICE: 01/07/2022 CHIEF COMPLAINT: Acute alcohol intoxication, depression, and homicidal and suicidal statements. HISTORY OF PRESENT ILLNESS: This 46-year-old male was brought to the emergency room extremely intoxicated. He apparently had had some difficulty with a girlfriend and was talking about suicide and homicide. Review of systems is unobtainable because of his inebriated state. He was last seen in the office in 2019, and at that time he was on no medications. He apparently is a smoker. The remainder of his history is unremarkable and noncontributory. He cannot give any contemporary history. PHYSICAL EXAMINATION: Blood pressure is 145/100 with a pulse of 86 and regular, respirations of 35. He is afebrile. In general he appeared to be very lethargic. Skin color was normal. Head, ears, eyes, nose, mouth and throat appeared to be normal. Pupils were equally round. Chest was clear. Cardiac exam demonstrated sinus tachycardia. The abdomen was soft and nontender. There were no masses. Extremities were normal. Neurologically, other than being intoxicated, he was intact. He is admitted to the hospital with the diagnoses: 1. Acute alcohol intoxication. 2. 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 PLAN: 1. Bedrest. 2. IV fluids. 3. CIWA protocol. 4. Suicide precautions. MMODL / IJN: [id number] /
--- NOTE | 2022-01-09 20:53 | PN ---
PROGRESS NOTE DATE OF SERVICE: 01/08/2022 CHIEF COMPLAINT: Acute alcohol intoxication. HISTORY OF PRESENT ILLNESS: This patient still remains very lethargic. He has made no threatening statements, however. PHYSICAL EXAMINATION: His vital signs are normal. The chest is clear. Cardiac exam is normal. The abdomen is soft and nontender. He is not tremulous. IMPRESSION: 1. Acute alcohol intoxication. 2. History of talking about suicide and homicide. PLAN: Continue with monitoring. The psychiatrist has seen him and feels that he is safe and not suicidal or homicidal. MMODL / IJN: [id number] /
--- NOTE | 2022-01-09 21:04 | DS ---
DISCHARGE SUMMARY CHIEF COMPLAINT: Acute alcohol intoxication and expression of homicidal and suicidal thoughts. HISTORY OF PRESENT ILLNESS AND PHYSICAL EXAMINATION: Details of this man's history and physical can be found in the initial workup. LABORATORY STUDIES: While he was in the hospital he had laboratory studies, details of which can be found in the laboratory section of his chart. COURSE IN THE HOSPITAL: After admission he was placed on bedrest, started on intravenous fluids and CIWA protocol. He remained intoxicated for over 24 hours but then became more awake and alert. He was seen by Psychiatry, who deemed that he was not homicidal or suicidal. He was doing well it was felt that he could be discharged and he will go home on Campral 333 mg three times a day and be seen in the office in the next day or two. FINAL DIAGNOSIS: 1. Acute alcohol intoxication. 2. Chronic alcoholism. 3. Expression of suicidal and homicidal thoughts. OPERATIONS: None. CONSULTATION: Psychiatry. He is improved. MMJIMENA / MARI: [id number] /
== END 2022-01-09 15:17 | disposition home or self-care (01) ==
LOC: EC 17:52 → 6NMEDSUR 19:37
PROVIDERS: ADMIT Family Medicine; ATTEND Family Medicine
DX: F10.229 Alcohol dependence with intoxication, unspecified (principal); R45.851 Suicidal ideations; R45.850 Homicidal ideations; F32.A Depression, unspecified; E87.5 Hyperkalemia; R00.0 Tachycardia, unspecified; F17.200 Nicotine dependence, unspecified, uncomplicated; Z74.3 Need for continuous supervision; Y90.8 Blood alcohol level of 240 mg/100 ml or more; Z71.41 Alcohol abuse counseling and surveillance of alcoholic; Z71.9 Counseling, unspecified
CPT/HCPCS: 96360; 96372; 99285; 36415; 80048 ×2; 85025; 85027; 80306; G0378 ×3; G0480; J3411; 80320

== ENCOUNTER 2022-02-04 18:30 | Emergency (ER) | payer OTHER ==
--- NOTE | 2022-02-04 21:18 | ED ---
General Adult HPI <MyraMarcelino - Last Filed: 02/05/22 06:32> - General Source: patient, EMS Mode of arrival: EMS Limitations: no limitations <Alek Schmidt - Last Filed: 02/05/22 16:13> - General Chief complaint: Alcohol Stated complaint: ETOH Time Seen by Provider: 02/04/22 21:08 - History of Present Illness Initial comments: Patient presents to the ED by ambulance for evaluation. Patient states that he "passed out" at his friend's residence after having "one too many beers", and he states that his friend must have called for an ambulance. Patient cannot tell me exactly many beers he has had to drink today, but he states that he was only drinking beers today. Patient denies medication abuse or overdose. Patient denies illicit drug use. Patient denies trauma or injury, and he denies having any pain. Patient denies fever or chills, headache, focal neuro deficit, neck/back/external pain, chest pain or pressure, dyspnea, cough or cold symptoms, palpitations, dizziness, abdominal pain, nausea/vomiting/diarrhea, dysuria or urinary symptoms, or any other symptoms or complaints. (Alek Schmidt) - Related Data Previous Rx's Medication Instructions Recorded Acamprosate Calcium [Campral] 333 mg PO TID #30 tablet 01/09/22 Thiamine [Vitamin B-1] 100 mg PO BID-W/MEALS #60 tab 01/09/22 Allergies Allergy/AdvReac Type Severity Reaction Status Date / Time No Known Allergies Allergy Verified 02/04/22 21:54 Review of Systems ROS Other: All systems not noted in ROS Statement are negative. <Marcelino Renteria - Last Filed: 02/05/22 06:32> ROS Other: All systems not noted in ROS Statement are negative. <Alek Schmidt - Last Filed: 02/05/22 16:13> ROS Statement: Those systems with pertinent positive or pertinent negative responses have been documented in the HPI. Past Medical History Past Medical History: No Reported History, CVA/TIA, Hearing Disorder / Deafness, Myocardial Infarction ([place]) Additional Past Medical History / Comment(s): patient states he's had 2 strokes and 2 heart attacks (5/6 months ago) States he has never followed up with any physicians.right sided hearing loss Last Myocardial Infarction Date:: unknown History of Any Multi-Drug Resistant Organisms: None Reported Past Surgical History: Unable to Obtain Past Anesthesia/Blood Transfusion Reactions: No Reported Reaction Past Psychological History: No Psychological Hx Reported Smoking Status: Current every day smoker Past Alcohol Use History: Daily, Heavy Past Drug Use History: None Reported - Past Family History Mother Family Medical History: Cancer Additional Family Medical History / Comment(s): breast and ovarian <Alek Schmidt - Last Filed: 02/05/22 16:13> General Exam Limitations: no limitations General appearance: alert, other (Patient appears intoxicated and smells of alcohol) Head exam: Present: atraumatic, normocephalic Eye exam: Present: PERRL, EOMI ENT exam: Present: mucous membranes moist Neck exam: Present: other (Trachea is in midline). Absent: tenderness Respiratory exam: Present: normal lung sounds bilaterally. Absent: respiratory distress, wheezes, rales, rhonchi, stridor Cardiovascular Exam: Present: regular rate, normal rhythm, normal heart sounds, other (Normal radial pulses bilaterally) GI/Abdominal exam: Present: soft. Absent: distended, tenderness, guarding Extremities exam: Absent: tenderness, pedal edema, calf tenderness Back exam: Present: normal inspection. Absent: tenderness Neurological exam: Present: alert, oriented X3, CN II-XII intact. Absent: motor sensory deficit Skin exam: Present: warm, dry, intact, normal color <Alek Schmidt - Last Filed: 02/05/22 16:13> Course <Alek Schmidt - Last Filed: 02/05/22 16:13> Vital Signs 02/04/22 02/05/22 02/05/22 22:00 03:47 06:00 Pulse Rate 74 75 72 Respiratory 16 18 Rate Blood Pressure 102/68 116/88 112/68 O2 Sat by Pulse 94 L 96 Oximetry - Reevaluation(s) Reevaluation #1: 02/04/22 23:04 Patient remains easily arousable and breathing comfortably. Other than an elevated alcohol level of 267, patient's labs are fairly unremarkable. Patient was endorsed to Dr. Renteria (ED physician) due to end of my shift. Dr. Renteria has agreed to watch the patient in the ED until he has sobered up more. Dr. Renteria will take over care of the patient at this time. (Alek Schmidt) Medical Decision Making - Lab Data Result diagrams: 02/04/22 22:00 02/04/22 22:00 <Marcelino Renteria - Last Filed: 02/05/22 06:32> - Lab Data Result diagrams: 02/04/22 22:00 02/04/22 22:00 <Alek Schmidt - Last Filed: 02/05/22 16:13> - Lab Data Lab Results 02/04/22 02/04/22 Range/Units 22:00 22:00 WBC 7.3 (3.8-10.6) k/uL RBC 4.32 (4.30-5.90) m/uL Hgb 14.2 (13.0-17.5) gm/dL Hct 44.0 (39.0-53.0) % MCV 101.9 H (80.0-100.0) fL MCH 32.9 (25.0-35.0) pg MCHC 32.3 (31.0-37.0) g/dL RDW 12.4 (11.5-15.5) % Plt Count 211 (150-450) k/uL MPV 7.3 Neutrophils % 46 % Lymphocytes % 44 % Monocytes % 3 % Eosinophils % 4 % Basophils % 1 % Neutrophils # 3.4 (1.3-7.7) k/uL Lymphocytes # 3.2 (1.0-4.8) k/uL Monocytes # 0.2 (0-1.0) k/uL Eosinophils # 0.3 (0-0.7) k/uL Basophils # 0.1 (0-0.2) k/uL Sodium 145 (137-145) mmol/L Potassium 4.3 (3.5-5.1) mmol/L Chloride 109 H (98-107) mmol/L Carbon Dioxide 23 (22-30) mmol/L Anion Gap 13 mmol/L BUN 7 L (9-20) mg/dL Creatinine 0.67 (0.66-1.25) mg/dL Est GFR (CKD-EPI)AfAm >90 (>60 ml/min/1.73 sqM) Est GFR (CKD-EPI)NonAf >90 (>60 ml/min/1.73 sqM) Glucose 81 (74-99) mg/dL Calcium 8.5 (8.4-10.2) mg/dL Total Bilirubin 0.4 (0.2-1.3) mg/dL AST 31 (17-59) U/L ALT 18 (4-49) U/L Alkaline Phosphatase 74 (38-126) U/L Total Protein 7.4 (6.3-8.2) g/dL Albumin 4.6 (3.5-5.0) g/dL Serum Alcohol 267 H* mg/dL Disposition Is patient prescribed a controlled substance at d/c from ED?: No <Marcelino Renteria - Last Filed: 02/05/22 06:32> Is patient prescribed a controlled substance at d/c from ED?: No <Alek Schmidt - Last Filed: 02/05/22 16:13> Clinical Impression: Alcohol intoxication Disposition: HOME SELF-CARE Condition: Good Instructions (If sedation given, give patient instructions): Alcohol Intoxication (ED) Referrals: Grady Trevino MD [Primary Care Provider] - 1-2 days
[2022-02-04] MEDS ORDERED: SODIUM CHLORIDE 0.9% 1,000 ML IV STA (21:47)
[2022-02-04 22:31] LABS: Basophils # (A) 0.1 k/uL (0-0.2); Basophils % (A) 1 %; Eosinophils # (A) 0.3 k/uL (0-0.7); Eosinophils % (A) 4 %; HGB 14.2 gm/dL (13.0-17.5); Lymphocytes # (A) 3.2 k/uL (1.0-4.8); Lymphocytes % (A) 44 %; MCH 32.9 pg (25.0-35.0); MCHC 32.3 g/dL (31.0-37.0); MCV 101.9 fL (80.0-100.0); Mean Platelet Volume 7.3; Monocytes # (A) 0.2 k/uL (0-1.0); Monocytes % (A) 3 %; Neutrophils # (A) 3.4 k/uL (1.3-7.7); Neutrophils % (A) 46 %; Platelet Count 211 k/uL (150-450); RBC 4.32 m/uL (4.30-5.90); RDW 12.4 % (11.5-15.5); WBC 7.3 k/uL (3.8-10.6)
[2022-02-04 22:42] LABS: ALT 18 U/L (4-49); AST 31 U/L (17-59); African American GFR (CKD) >90 (>60 ml/min/1.73 sqM); Albumin 4.6 g/dL (3.5-5.0); Alkaline Phosphatase 74 U/L (38-126); Anion Gap 13 mmol/L; Blood Urea Nitrogen 7 mg/dL (9-20); Calcium 8.5 mg/dL (8.4-10.2); Carbon Dioxide 23 mmol/L (22-30); Chloride 109 mmol/L (98-107); Glucose 81 mg/dL (74-99); Non-African American GFR(CKD) >90 (>60 ml/min/1.73 sqM); Potassium 4.3 mmol/L (3.5-5.1); Sodium 145 mmol/L (137-145); Total Bilirubin 0.4 mg/dL (0.2-1.3); Total Protein 7.4 g/dL (6.3-8.2)
[2022-02-04 22:45] LABS: Alcohol 267 mg/dL
[2022-02-05 03:49] VITALS: RESP 18
[2022-02-05 06:56] VITALS: BP 112/68; PULSE 72
== END 2022-02-05 07:16 | disposition home or self-care (01) ==
LOC: EC 18:30
DX: F10.129 Alcohol abuse with intoxication, unspecified (principal); F17.200 Nicotine dependence, unspecified, uncomplicated
CPT/HCPCS: 82075; 36415; 80053; 85025; 99284; 96360; G0480; 80320

== ENCOUNTER 2023-03-26 21:00 | Emergency (ER) | payer OTHER ==
[2023-03-26 21:17] VITALS: RESP 16
[2023-03-26] MEDS ORDERED: MORPHINE SULFATE 4 MG/ML SYRINGE IM STA (22:25)
--- NOTE | 2023-03-26 22:30 | ED ---
General Adult HPI - General Chief complaint: Alcohol Stated complaint: ETOH Time Seen by Provider: 03/26/23 22:14 Source: patient, EMS Mode of arrival: EMS Limitations: no limitations - History of Present Illness Initial comments: This patient is 47-year-old man brought by ambulance to have evaluation after reportedly having fallen. The patient admits to drinking alcohol. He does not remember the mechanism of injury, but states that his shoulder hurts. He indicates the left shoulder/upper humerus. Complains of decreased range of motion. Denies weakness/numbness -: minutes(s) Location: left, upper extremity Quality: sharp Consistency: constant Improves with: immobilization Worsens with: movement Associated Symptoms: denies other symptoms Treatments Prior to Arrival: none - Related Data Previous Rx's Medication Instructions Recorded Acamprosate Calcium [Campral] 333 mg PO TID #30 tablet 01/09/22 Thiamine [Vitamin B-1] 100 mg PO BID-W/MEALS #60 tab 01/09/22 Acetaminophen-Codeine 300-30mg 1 tab PO Q4H PRN #16 tablet 03/27/23 [Tylenol w/codeine #3] Ibuprofen [Motrin] 600 mg PO Q8HR PRN #20 tab 03/27/23 Allergies Allergy/AdvReac Type Severity Reaction Status Date / Time No Known Allergies Allergy Verified 02/04/22 21:54 Review of Systems ROS Statement: Those systems with pertinent positive or pertinent negative responses have been documented in the HPI. ROS Other: All systems not noted in ROS Statement are negative. Constitutional: Denies: weakness Eyes: Denies: vision change Respiratory: Denies: cough, dyspnea Cardiovascular: Denies: chest pain, palpitations Gastrointestinal: Denies: abdominal pain, vomiting Musculoskeletal: Reports: as per HPI, arthralgia. Denies: back pain Skin: Denies: rash Neurological: Denies: headache, weakness Past Medical History Past Medical History: No Reported History, CVA/TIA, Hearing Disorder / Deafness, Myocardial Infarction (PR) Additional Past Medical History / Comment(s): patient states he's had 2 strokes and 2 heart attacks (5/6 months ago) States he has never followed up with any physicians.right sided hearing loss Last Myocardial Infarction Date:: unknown History of Any Multi-Drug Resistant Organisms: None Reported Past Surgical History: Unable to Obtain Past Anesthesia/Blood Transfusion Reactions: No Reported Reaction Past Psychological History: No Psychological Hx Reported Smoking Status: Current every day smoker Past Alcohol Use History: Daily, Heavy Past Drug Use History: None Reported - Past Family History Mother Family Medical History: Cancer Additional Family Medical History / Comment(s): breast and ovarian General Exam Limitations: no limitations General appearance: alert, appears intoxicated Head exam: Present: atraumatic, normocephalic Eye exam: Present: normal appearance. Absent: scleral icterus, conjunctival injection Neck exam: Present: normal inspection, full ROM. Absent: tenderness Respiratory exam: Present: normal lung sounds bilaterally. Absent: respiratory distress, wheezes, rales, rhonchi, stridor Cardiovascular Exam: Present: regular rate, normal rhythm, normal heart sounds. Absent: systolic murmur, diastolic murmur, rubs, gallop GI/Abdominal exam: Present: soft. Absent: distended, tenderness, guarding, rebound, rigid, mass Extremities exam: Present: normal inspection, normal capillary refill. Absent: pedal edema, calf tenderness Left Shoulder Exam: Present: tenderness, swelling, deformity. Absent: full ROM, abrasion, laceration, ecchymosis Upper Arm exam: Present: normal inspection, tenderness. Absent: full ROM Elbow exam: Present: normal inspection, full ROM. Absent: tenderness, swelling Forearm Wrist exam: Present: normal inspection, full ROM. Absent: tenderness, swelling Hand Wrist exam: Present: normal inspection, full ROM. Absent: tenderness, swelling Neurosensory exam: Present: radial nerve intact, ulnar nerve intact, median nerve intact Vascular: Present: normal capillary refill. Absent: vascular compromise, Pallo, pulse deficit radial art, pulse deficit ulnar art, pulse deficit brachial art Back exam: Present: normal inspection. Absent: CVA tenderness (R), CVA tenderness (L), vertebral tenderness Neurological exam: Present: alert, CN II-XII intact. Absent: motor sensory deficit Skin exam: Present: warm, dry, intact, normal color. Absent: rash Course Vital Signs 03/26/23 03/27/23 21:14 06:00 Temperature 97 F L 98.3 F Pulse Rate 103 H 79 Respiratory 16 16 Rate Blood Pressure 138/86 113/68 O2 Sat by Pulse 95 94 L Oximetry Medical Decision Making - Medical Decision Making The patient had left shoulder x-ray that I interpreted as showing fracture of the humerus neck. There also is a left clavicle fracture but that does appear to be chronic. Computed tomography scan of the brain is obtained which I interpreted as being negative for acute bony injury or intracranial hemorrhage. Was pt. sent in by a medical professional or institution ([facility], [employer], urgent care, hospital, or care home...) When possible be specific @ -[No] Did you speak to anyone other than the patient for history (EMS, parent, family, police, friend...)? What history was obtained from this source @ -[EMS did give some history Did you review nursing and triage notes (agree or disagree)? Why? @ -[I reviewed and agree with nursing and triage notes] Were old charts reviewed (outside hosp., previous admission, EMS record, old EKG, old radiological studies, urgent care reports/EKG's, care home records)? Report findings @ -[No old charts were reviewed] Differential Diagnosis (chest pain, altered mental status, abdominal pain women, abdominal pain men, vaginal bleeding, weakness, fever, dyspnea, syncope, heada kaiden, dizziness, GI bleed, back pain, seizure, CVA, palpatations, mental health, musculoskeletal)? @ -[Differential Musculoskeletal Muscular strain, contusion, ligament sprain, fracture, arthritis, septic arthritis, bursitis, cellulitis, muscle spasm, nerve compression, DVT, arterial occlusion, herpes zoster, electrolyte abnormality, tumor.... This is not meant to be in all inclusive list EKG interpreted by me (3pts min.). @ -[As above] X-rays interpreted by me (1pt min.). @ -[As above CT interpreted by me (1pt min.). @ -[None done] U/S interpreted by me (1pt. min.). @ -[None done] What testing was considered but not performed or refused? (CT, X-rays, U/S, labs)? Why? @ -[None] What meds were considered but not given or refused? Why? @ -[None] Did you discuss the management of the patient with other professionals (professionals i.e. [facility], [employer], lab, RT, psych nurse, high school social science teacher, printed circuit layout taper, teacher, diplomatic officer, watch case polisher)? Give summary @ -[No] Was smoking cessation discussed for >3mins.? @ -[No] Was critical care preformed (if so, how long)? @ -[No] Were there social determinants of health that impacted care today? How? (Homelessness, low income, unemployed, alcoholism, drug addiction, transport ation, low edu. Level, literacy, decrease access to med. care, long-term, rehab)? @ -[No] Was there de-escalation of care discussed even if they declined (Discuss DNR or withdrawal of care, Hospice)? DNR status @ -[No] What co-morbidities impacted this encounter? (DM, HTN, Smoking, COPD, CAD, Cancer, CVA, ARF, Chemo, Hep., AIDS, mental health diagnosis, sleep apnea, morbid obesity)? @ -[None] Was patient admitted / discharged? Hospital course, mention meds given and route, prescriptions, significant lab abnormalities, going to OR and other pertinent info. @ -[Patient is 47-year-old man here after a ground-level fall. The patient is moderately intoxicated on arrival and given the distracting injury and intoxication computed tomography scan of the brain is obtained to rule out acute injury. The patient has proximal humerus fracture. In addition there is clav icle fracture but this is old injury. Given that the patient is intoxicated, he is allowed to sleep until walking without ataxia. The patient will follow-up with orthopedics for further care. Discussed appropriate follow-up, or other return parameters Undiagnosed new problem with uncertain prognosis? @ -[No] Drug Therapy requiring intensive monitoring for toxicity (Heparin, Nitro, Insulin, Cardizem)? @ -[No] Were any procedures done? @ -[No] Diagnosis/symptom? @ -[Acute proximal humerus fracture Chronic clavicle fracture Acute alcohol intoxication Acute, or Chronic, or Acute on Chronic? @ -[default] Uncomplicated (without systemic symptoms) or Complicated (systemic symptoms)? @ -Uncomplicated Side effects of treatment? @ -[No] Exacerbation, Progression, or Severe Exacerbation? @ -[No] Poses a threat to life or bodily function? How? (Chest pain, [place], PR, pneumonia, PE, COPD, DKA, ARF, appy, cholecystitis, CVA, Diverticulitis, Homicidal, Suicidal, threat to staff... and all critical care pts) @ -[No] Disposition Clinical Impression: Alcohol intoxication, Humerus surgical neck fracture Disposition: HOME SELF-CARE Condition: Fair Instructions (If sedation given, give patient instructions): Alcohol Intoxication (ED), Proximal Humerus Fracture (ED) Prescriptions: Ibuprofen [Motrin] 600 mg PO Q8HR PRN #20 tab PRN Reason: Pain Acetaminophen-Codeine 300-30mg [Tylenol w/codeine #3] 1 tab PO Q4H PRN #16 tablet PRN Reason: Pain Is patient prescribed a controlled substance at d/c from ED?: No Referrals: Grady Trevino MD [Primary Care Provider] - 1-2 days Lanie Garcia DO [Doctor of Osteopathic Medicine] - 1-2 days
--- NOTE | 2023-03-26 22:42 | XR ---
EXAM: XR Left Shoulder Complete, 2 or More Views CLINICAL HISTORY: ITS.REASON XR Reason: injury TECHNIQUE: Two or more views of the left shoulder. COMPARISON: No relevant prior studies available. FINDINGS: Bones/joints: Displaced fracture of the LEFT proximal humerus surgical neck. Old, nonunited fracture of the LEFT distal clavicle. No dislocation. Soft tissues: Unremarkable. IMPRESSION: Displaced fracture of the LEFT proximal humerus surgical neck.
--- NOTE | 2023-03-26 23:27 | CT ---
EXAM: CT Head Without Intravenous Contrast CLINICAL HISTORY: ITS.REASON CT Reason: fall injury TECHNIQUE: Axial computed tomography images of the head/brain without intravenous contrast. CTDI is 49.2 mGy and DLP is 1158.4 mGy-cm. This CT exam was performed using one or more of the following dose reduction techniques: automated exposure control, adjustment of the mA and/or kV according to patient size, and/or use of iterative reconstruction technique. COMPARISON: No relevant prior studies available. FINDINGS: No acute intracranial hemorrhage. No midline shift or mass effect. The territorial lynch-white matter differentiation is maintained throughout. The ventricles and sulci are commensurate with age. The visualized orbits appear grossly unremarkable. The calvarium is intact. The visualized paranasal sinuses and mastoid air cells are grossly clear. IMPRESSION: No acute intracranial hemorrhage, midline shift, or mass effect.
[2023-03-27 06:10] VITALS: BP 113/68; PULSE 79; TEMP 98.3
== END 2023-03-27 07:55 | disposition home or self-care (01) ==
LOC: EC 21:00
DX: S42.302A Unspecified fracture of shaft of humerus, left arm, initial encounter for closed fracture (principal); S12.9XXA Fracture of neck, unspecified, initial encounter; F10.129 Alcohol abuse with intoxication, unspecified; I25.2 Old myocardial infarction; F17.200 Nicotine dependence, unspecified, uncomplicated; W18.30XA Fall on same level, unspecified, initial encounter
CPT/HCPCS: 73030; 70450; 99285; 96372; J2270

== ENCOUNTER 2024-07-28 01:45 | Emergency (ER) | payer OTHER ==
[2024-07-28 02:04] LABS: Glucose,Whole Blood 96 mg/dL (70-110)
--- NOTE | 2024-07-28 04:29 | ED ---
General Adult HPI <HegayleJohnny Jennifer - Last Filed: 07/28/24 10:01> - General Source: patient Mode of arrival: ambulatory Limitations: no limitations <Evelina Ellington - Last Filed: 07/29/24 19:57> - General Chief complaint: Alcohol Stated complaint: ETOH Time Seen by Provider: 07/28/24 02:04 - History of Present Illness Initial comments: Patient is a 49-year-old male with a past medical history of alcoholism presenting today for alcohol intoxication. Brought in by EMS after patient seen walking down the side of the road intoxicated. Patient denies injury, denies any complaints at this time, denies pain. States he did drink alcohol last night but will not say how much, also smoked marijuana. States he drinks alcohol every day. He denies thoughts of homicide or suicide. (Evelina Ellington) - Related Data Previous Rx's Medication Instructions Recorded Acamprosate Calcium [Campral] 333 mg PO TID #30 tablet 01/09/22 Thiamine [Vitamin B-1] 100 mg PO BID-W/MEALS #60 tab 01/09/22 Acetaminophen-Codeine 300-30mg 1 tab PO Q4H PRN #16 tablet 03/27/23 [Tylenol w/codeine #3] Ibuprofen [Motrin] 600 mg PO Q8HR PRN #20 tab 03/27/23 Allergies Allergy/AdvReac Type Severity Reaction Status Date / Time No Known Allergies Allergy Verified 07/28/24 01:54 Review of Systems ROS Other: All systems not noted in ROS Statement are negative. <Johnny Smalls - Last Filed: 07/28/24 10:01> ROS Other: All systems not noted in ROS Statement are negative. <Evelina Ellington - Last Filed: 07/29/24 19:57> ROS Statement: Those systems with pertinent positive or pertinent negative responses have been documented in the HPI. Past Medical History Past Medical History: No Reported History, CVA/TIA, Hearing Disorder / Deafness, Myocardial Infarction ([place]) Additional Past Medical History / Comment(s): patient states he's had 2 strokes and 2 heart attacks (5/6 months ago) States he has never followed up with any physicians.right sided hearing loss Last Myocardial Infarction Date:: unknown History of Any Multi-Drug Resistant Organisms: None Reported Past Surgical History: Unable to Obtain Past Anesthesia/Blood Transfusion Reactions: No Reported Reaction Past Psychological History: No Psychological Hx Reported Smoking Status: Current every day smoker Past Alcohol Use History: Daily, Heavy Past Drug Use History: None Reported - Past Family History Mother Family Medical History: Cancer Additional Family Medical History / Comment(s): breast and ovarian <Evelina Ellington - Last Filed: 07/29/24 19:57> General Exam Limitations: no limitations <Evelina Ellington - Last Filed: 07/29/24 19:57> - General Exam Comments Initial Comments: PE: CONSTITUTIONAL: [no apparent distress, disheveled, nontoxic, no signs of injury] SKIN: [warm, dry, no jaundice, hives or petechiae] EYES:[ pupils are equally round, extraocular movements intact without nystagmus, clear conjunctiva, non-icteric sclera] HENT: [normocephalic, atraumatic, moist mucus membranes] NECK: , [Full range of motion, normal appearance] PULMONARY: [clear to auscultation without wheezes, rhonchi, or rales, normal excursion, no accessory muscle use and no stridor] CARDIOVASCULAR:[ regular rate, rhythm, normal S1 and S2. No appreciated murmurs, rubs or gallops.Extremities well perfused] MUSCULOSKELETAL: [Visualized extremities have no gross deformity, no edema, redness, or swelling. ] NEUROLOGIC: [_a/o x 3, GCS 15, appears intoxicated, loquascious, slightly slurring speech. Moves all extremities x 4 without motor or sensory deficit] PSYCHIATRIC:[ labile mood, angry affect, intermittently shouts at staff but is redirectable and cooperative, requesting to be allowed to go out and smoke cigarettes, pt visibly intoxicated] (Evelina Ellington) Course Vital Signs 07/28/24 07/28/24 07/28/24 01:54 06:42 08:49 Temperature 97.7 F 97.9 F Pulse Rate 72 89 64 Respiratory 20 15 18 Rate Blood Pressure 157/95 128/87 101/61 O2 Sat by Pulse 99 98 95 Oximetry 07/28/24 10:29 Temperature Pulse Rate 75 Respiratory 16 Rate Blood Pressure 118/75 O2 Sat by Pulse 99 Oximetry Medical Decision Making <Johnny Smalls - Last Filed: 07/28/24 10:01> <Evelina Ellington - Last Filed: 07/29/24 19:57> - Medical Decision Making Patient observed in the emergency department until sober. Stable for discharge. (Johnny Smalls) Was pt. sent in by a medical professional or institution (, PA, AEROBICS TEACHER, urgent care, hospital, or long-term...) When possible be specific @ -No Did you speak to anyone other than the patient for history (EMS, parent, family, police, friend...)? What history was obtained from this source @ -No Did you review nursing and triage notes (agree or disagree)? Why? @ -I reviewed and agree with nursing and triage notes Were old charts reviewed (outside hosp., previous admission, EMS record, old EKG, old radiological studies, urgent care reports/EKG's, long-term records)? Report findings @ -Medical records reviewed- patient presented here on 03/26/2023 after falling due to alcohol intoxication, additionally on 02/04/2022 had presented for alcohol intoxication at that time. Differential Diagnosis (chest pain, altered mental status, abdominal pain women, abdominal pain men, vaginal bleeding, weakness, fever, dyspnea, syncope, headache, dizziness, GI bleed, back pain, seizure, CVA, palpatations, mental health, musculoskeletal)? @ -Differential diagnosis remains broad however top considerations include alcohol intoxication, drug intoxication, mental health diagnoses, malingering, this is not all inclusive list EKG interpreted by me (3pts min.). @ -As above X-rays interpreted by me (1pt min.). @ -None done CT interpreted by me (1pt min.). @ -None done U/S interpreted by me (1pt. min.). @ -None done What testing was considered but not performed or refused? (CT, X-rays, U/S, labs)? Why? @ -None What meds were considered but not given or refused? Why? @ -None Did you discuss the management of the patient with other professionals (professionals i.e. , PA, AEROBICS TEACHER, lab, RT, psych nurse, social services assistant, physical science technician, teacher, armored vehicle officer, test case developer)? Give summary @ -No Was smoking cessation discussed for >3mins.? @ -No Was critical care preformed (if so, how long)? @ -No Were there social determinants of health that impacted care today? How? (Homelessness, low income, unemployed, alcoholism, drug addiction, transportation, low edu. Level, literacy, decrease access to med. care, nursing home, rehab)? @ Homeless Was there de-escalation of care discussed even if they declined (Discuss DNR or withdrawal of care, Hospice)? @ -No What co-morbidities impacted this encounter? (DM, HTN, Smoking, COPD, CAD, Cancer, CVA, ARF, Chemo, Hep., AIDS, mental health diagnosis, sleep apnea, morbid obesity)? @Alcoholism Was patient admitted / discharged? Hospital course, mention meds given and route, prescriptions, significant lab abnormalities, going to OR and other pertinent info. @ -Anticipate discharge Patient is a 49-year-old male with a past medical history of chronic alcohol abuse presenting today for alcohol intoxication. Patient states he drank alcohol tonight and is unable to quantify how much. States he also smoked marijuana. States he drinks every day. He denies injuries, falls or pain. Denies homicidal or suicidal thoughts. Alcohol breath test 228. Patient appears visibly intoxicated, mildly erythematous conjuctiva, loud speech, slightly slurred, initially angry and shouting at staff but redirectable , somewhat angry at being brought in today but not agitated, without signs of injury. Discussed with patient plan for clinical sobriety and discharge. He was told that if he could obtain a sober ride to take him home safely he would be able to be discharged sooner however he does not feel he can obtain a sober ride. Pt sleeping comfortably on reassessment, admitted to having to much to drink last night. Signed out to oncoming phsyician, Dr. Smalls, pending sobriety at 10 AM. Undiagnosed new problem with uncertain prognosis? @ -No Drug Therapy requiring intensive monitoring for toxicity (Heparin, Nitro, Insulin, Cardizem)? @ -No Were any procedures done? @ -No Diagnosis/symptom? @ Alcohol intoxication Acute, or Chronic, or Acute on Chronic? @Acute Uncomplicated (without systemic symptoms) or Complicated (systemic symptoms)? @ -uncomplicated Side effects of treatment? @ -No Exacerbation, Progression, or Severe Exacerbation? @ -No Poses a threat to life or bodily function? How? (Chest pain, [place], [place], pneumonia, PE, COPD, DKA, ARF, appy, cholecystitis, CVA, Diverticulitis, Homicidal, Suicidal, threat to staff... and all critical care pts) @ -No (Evelina Ellington) - Lab Data Lab Results 07/28/24 Range/Units 02:00 POC Glucose (mg/dL) 96 (70-110) mg/dL POC Glu Air Pollution Analyst ID Ld Engel Disposition Is patient prescribed a controlled substance at d/c from ED?: No Time of Disposition: 10:01 <Johnny Smalls - Last Filed: 07/28/24 10:01> Is patient prescribed a controlled substance at d/c from ED?: No <Evelina Ellington - Last Filed: 07/29/24 19:57> Clinical Impression: Alcohol intoxication Disposition: HOME SELF-CARE Condition: Good Instructions (If sedation given, give patient instructions): Alcohol Intoxication (ED) Referrals: Xavier [facility], [facility] [REFERRING] - 1-2 days
[2024-07-28 06:48] VITALS: TEMP 97.9
[2024-07-28 10:31] VITALS: BP 118/75; PULSE 75; RESP 16
== END 2024-07-28 10:34 | disposition home or self-care (01) ==
LOC: EC 01:45
DX: F10.129 Alcohol abuse with intoxication, unspecified (principal); F17.200 Nicotine dependence, unspecified, uncomplicated; Z86.73 Personal history of transient ischemic attack (TIA), and cerebral infarction without residual deficits
CPT/HCPCS: 36415; 82075; 99284

== ENCOUNTER 2024-08-30 00:05 | Emergency (ER) | payer OTHER ==
[2024-08-30 00:14] VITALS: BP 146/115; PULSE 76; RESP 18; TEMP 98.7
== END 2024-08-30 00:51 | disposition left against medical advice (07) ==
LOC: EC 00:05
DX: Z53.21 Procedure and treatment not carried out due to patient leaving prior to being seen by health care provider (principal)
CPT/HCPCS: 99499

== ENCOUNTER 2024-09-17 01:58 | Observation (INO) | payer OTHER ==
[2024-09-17] MEDS ORDERED: LORazepam 0.5 MG TAB PO PRN (02:02)
[2024-09-17] MEDS ORDERED: LORazepam 1 MG TAB PO PRN ×4 (02:02)
[2024-09-17] MEDS ORDERED: LORazepam 2 MG/ML INJ IV PRN ×3 (02:02)
--- NOTE | 2024-09-17 02:04 | ED ---
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) Associated Symptoms: denies other symptoms Treatments Prior to Arrival: none Chronic Alcohol Use: Yes - Related Data Previous Rx's Medication Instructions Recorded Folic Acid 1 mg PO DAILY #30 tab 09/17/24 Multivitamins, Thera [Multivitamin 1 each PO DAILY #30 tab 09/17/24 (formulary)] Thiamine [Vitamin B-1] 100 mg PO DAILY #30 tablet 09/17/24 Allergies Allergy/AdvReac Type Severity Reaction Status Date / Time No Known Allergies Allergy Verified 09/17/24 08:45 Review of Systems ROS Statement: Those systems with pertinent positive or pertinent negative responses have been documented in the HPI. ROS Other: All systems not noted in ROS Statement are negative. Past Medical History Past Medical History: No Reported History, CVA/TIA, Hearing Disorder / Deafness, Myocardial Infarction ([place]) Additional Past Medical History / Comment(s): patient states he's had 2 strokes and 2 heart attacks (5/6 months ago) States he has never followed up with any physicians.right sided hearing loss Last Myocardial Infarction Date:: unknown History of Any Multi-Drug Resistant Organisms: None Reported Past Surgical History: Unable to Obtain Past Anesthesia/Blood Transfusion Reactions: No Reported Reaction Past Psychological History: No Psychological Hx Reported Smoking Status: Current every day smoker Past Alcohol Use History: Daily, Heavy Past Drug Use History: None Reported - Past Family History Mother Family Medical History: Cancer Additional Family Medical History / Comment(s): breast and ovarian General Exam General appearance: alert, in no apparent distress, appears intoxicated Head exam: Present: atraumatic, normocephalic, normal inspection Eye exam: Present: normal appearance, PERRL, EOMI. Absent: scleral icterus, conjunctival injection, periorbital swelling ENT exam: Present: normal exam, mucous membranes moist Neck exam: Present: normal inspection. Absent: tenderness, meningismus, lymphadenopathy Respiratory exam: Present: normal lung sounds bilaterally. Absent: respiratory distress, wheezes, rales, rhonchi, stridor Cardiovascular Exam: Present: regular rate, normal rhythm, normal heart sounds. Absent: systolic murmur, diastolic murmur, rubs, gallop, clicks GI/Abdominal exam: Present: soft, normal bowel sounds. Absent: distended, tenderness, guarding, rebound, rigid Extremities exam: Present: normal inspection, full ROM, normal capillary refill. Absent: tenderness, pedal edema, joint swelling, calf tenderness Back exam: Present: normal inspection Neurological exam: Present: alert, oriented X3, CN II-XII intact Psychiatric exam: Present: normal affect, normal mood Skin exam: Present: warm, dry, intact, normal color. Absent: rash Course Vital Signs 09/17/24 09/17/24 09/17/24 01:59 04:05 05:58 Temperature 98.2 F Pulse Rate 86 70 72 Respiratory 15 14 15 Rate Blood Pressure 146/91 115/70 106/71 O2 Sat by Pulse 92 L 93 L 93 L Oximetry 09/17/24 09/17/24 09/17/24 11:14 13:10 17:14 Temperature Pulse Rate 81 82 69 Respiratory 18 18 18 Rate Blood Pressure 150/90 147/76 151/88 O2 Sat by Pulse 97 95 95 Oximetry - Reevaluation(s) Reevaluation #1: 09/17/24 02:29 Medical records reviewed Reevaluation #2: 09/17/24 03:07 No change in symptoms here in the ER Reevaluation #3: 09/17/24 03:07 Patient informed of results questions answered Reevaluation #4: Was pt. sent in by a medical professional or institution (, PA, TRANSPLANT WORKER, urgent care, hospital, or snf...) When possible be specific @ -no Did you speak to anyone other than the patient for history (EMS, parent, family, police, friend...)? What history was obtained from this source @ -no Did you review nursing and triage notes (agree or disagree)? Why? @ -agree Are old charts reviewed (outside hosp., previous admission, EMS record, old EKG, old radiological studies, urgent care reports/EKG's, snf records)? Report findings @ -yes Differential Diagnosis (chest pain, altered mental status, abdominal pain women, abdominal pain men, vaginal bleeding, weakness, fever, dyspnea, syncope, headache, dizziness, GI bleed, back pain, seizure, CVA, palpatations, mental health, musculoskeletal)? @ -prior EKG interpreted by me (3pts min.). @ -no X-rays interpreted by me (1pt min.). @ -no CT interpreted by me (1pt min.). @ -no U/S interpreted by me (1pt. min.). @ -no What testing was considered but not performed or refused? (CT, X-rays, U/S, labs)? Why? @ -none What meds were considered but not given or refused? Why? @ -none Did you discuss the management of the patient with other professionals (professionals i.e. Dr., PA, TRANSPLANT WORKER, lab, RT, psych nurse, long term care social worker, money market clerk, teacher, learning officer, medical case manager)? Give summary @ -no Was smoking cessation discussed for >3mins.? @ -no Was critical care preformed (if so, how long)? @ -no Were there social determinants of health that impacted care today? How? (Homel essness, low income, unemployed, alcoholism, drug addiction, transportation, low edu. Level, literacy, decrease access to med. care, shelter, rehab)? @ -none Was there de-escalation of care discussed even if they declined (Discuss DNR or withdrawal of care, Hospice)? DNR status @ -no What co-morbidities impacted this encounter? (DM, HTN, Smoking, COPD, CAD, Cancer, CVA, ARF, Chemo, Hep., AIDS, mental health diagnosis, sleep apnea, morbid obesity)? @ -none Was patient admitted / discharged? Hospital course, mention meds given and route, prescriptions, significant lab abnormalities, going to OR and other pertinent info. @ - 49 male to ER for severe alcohol intoxication pending alcohol withdrawal. Patient will admit for observation Admitted Undiagnosed new problem with uncertain prognosis? @ -no Drug Therapy requiring intensive monitoring for toxicity (Heparin, Nitro, Insulin, Cardizem)? @ -no Were any procedures done? @ -no Diagnosis/symptom? @ -Alcohol intoxication pending withdrawal Acute, or Chronic, or Acute on Chronic? @ -Acute Uncomplicated (without systemic symptoms) or Complicated (systemic symptoms)? @ -Complicated Side effects of treatment? @ -no Exacerbation, Progression, or Severe Exacerbation? @ -exacerbation Poses a threat to life or bodily function? How? (Chest pain, [place], [place], pneumonia, PE, COPD, DKA, ARF, appy, cholecystitis, CVA, Diverticulitis, Homicidal, Suicidal, threat to staff... and all critical care pts) @ -yes significant withdrawal symptoms Reevaluation #5: 09/17/24 02:29 Differential Altered Mental Status: Hypoglycemia, DKA, hypercapnia, ETOH, overdose, CO poisoning, trauma, myxedema coma, HTN encephalopathy, infection, encephalitis, psychosis, intercranial hemorrhage, hepatic encephalopathy, meningitis, CVA, this is not meant to be an all-inclusive list Medical Decision Making - Medical Decision Making 49 male to ER for severe alcohol intoxication pending alcohol withdrawal. Patient will admit for observation - Lab Data Result diagrams: 09/17/24 02:06 09/17/24 02:06 Lab Results 09/17/24 09/17/24 Range/Units 02:06 02:06 WBC 8.7 (3.8-10.6) k/uL RBC 4.57 (4.30-5.90) m/uL Hgb 14.8 (13.0-17.5) gm/dL Hct 44.4 (39.0-53.0) % MCV 97.2 (80.0-100.0) fL MCH 32.3 (25.0-35.0) pg MCHC 33.3 (31.0-37.0) g/dL RDW 13.1 (11.5-15.5) % Plt Count 289 (150-450) k/uL MPV 7.3 Neutrophils % 52 % Lymphocytes % 37 % Monocytes % 5 % Eosinophils % 3 % Basophils % 1 % Neutrophils # 4.5 (1.3-7.7) k/uL Lymphocytes # 3.2 (1.0-4.8) k/uL Monocytes # 0.5 (0-1.0) k/uL Eosinophils # 0.3 (0-0.7) k/uL Basophils # 0.1 (0-0.2) k/uL Sodium 139 (137-145) mmol/L Potassium 3.7 (3.5-5.1) mmol/L Chloride 104 (98-107) mmol/L Carbon Dioxide 25 (22-30) mmol/L Anion Gap 10 mmol/L BUN 8 L (9-20) mg/dL Creatinine 0.70 (0.66-1.25) mg/dL Est GFR (CKD-EPI)AfAm >90 (>60 ml/min/1.73 sqM) Est GFR (CKD-EPI)NonAf >90 (>60 ml/min/1.73 sqM) Glucose 98 (74-99) mg/dL Calcium 9.0 (8.4-10.2) mg/dL Phosphorus 4.0 (2.5-4.5) mg/dL Magnesium 2.1 (1.6-2.3) mg/dL Total Bilirubin 0.4 (0.2-1.3) mg/dL AST 45 (17-59) U/L ALT 35 (4-49) U/L Alkaline Phosphatase 103 (38-126) U/L Total Protein 7.4 (6.3-8.2) g/dL Albumin 4.8 (3.5-5.0) g/dL Lipase 103 (23-300) U/L Serum Alcohol 287 H* mg/dL Disposition Clinical Impression: Alcohol intoxication, Alcohol withdrawal syndrome, Alcohol withdrawal delirium Disposition: ADMITTED IP TO THIS HOSP Condition: Fair Is patient prescribed a controlled substance at d/c from ED?: No Time of Disposition: 03:00
[2024-09-17 02:05] VITALS: TEMP 98.2
[2024-09-17 02:15] LABS: Basophils # (A) 0.1 k/uL (0-0.2); Basophils % (A) 1 %; Eosinophils # (A) 0.3 k/uL (0-0.7); Eosinophils % (A) 3 %; HCT 44.4 % (39.0-53.0); HGB 14.8 gm/dL (13.0-17.5); Lymphocytes # (A) 3.2 k/uL (1.0-4.8); Lymphocytes % (A) 37 %; MCH 32.3 pg (25.0-35.0); MCHC 33.3 g/dL (31.0-37.0); MCV 97.2 fL (80.0-100.0); Mean Platelet Volume 7.3; Monocytes # (A) 0.5 k/uL (0-1.0); Monocytes % (A) 5 %; Neutrophils # (A) 4.5 k/uL (1.3-7.7); Neutrophils % (A) 52 %; Platelet Count 289 k/uL (150-450); RBC 4.57 m/uL (4.30-5.90); RDW 13.1 % (11.5-15.5); WBC 8.7 k/uL (3.8-10.6)
[2024-09-17] MEDS: SODIUM CHLORIDE 0.9% 1,000 ML IV STA (02:17)
[2024-09-17] MEDS: SODIUM CHLORIDE 0.9% 500 ML 500 ML IV STA (02:17)
[2024-09-17 02:26] LABS: ALT 35 U/L (4-49); AST 45 U/L (17-59); African American GFR (CKD) >90 (>60 ml/min/1.73 sqM); Albumin 4.8 g/dL (3.5-5.0); Alkaline Phosphatase 103 U/L (38-126); Anion Gap 10 mmol/L; Blood Urea Nitrogen 8 mg/dL (9-20); Carbon Dioxide 25 mmol/L (22-30); Chloride 104 mmol/L (98-107); Glucose 98 mg/dL (74-99); Lipase 103 U/L (23-300); Magnesium 2.1 mg/dL (1.6-2.3); Non-African American GFR(CKD) >90 (>60 ml/min/1.73 sqM); Potassium 3.7 mmol/L (3.5-5.1); Sodium 139 mmol/L (137-145); Total Bilirubin 0.4 mg/dL (0.2-1.3); Total Protein 7.4 g/dL (6.3-8.2)
[2024-09-17 02:43] LABS: Alcohol 287 mg/dL
[2024-09-17] MEDS ORDERED: ONDANSETRON 4 MG/2 ML VIAL IVP PRN (03:06)
[2024-09-17] MEDS ORDERED: NALOXONE 0.4 MG/ML 1 ML VIAL IV PRN (03:06)
[2024-09-17] MEDS: SODIUM CHLORIDE 0.9% 1,000 ML IV SCH (03:30)
[2024-09-17] MEDS: MULTIVITAMINS, THERA 1 EACH TAB PO SCH (10:02)
[2024-09-17] MEDS: FOLIC ACID 1 MG TAB PO SCH (10:02)
[2024-09-17 11:15] VITALS: RESP 18
--- NOTE | 2024-09-17 13:19 | P.HPIM ---
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 Patient has past medical history of CVA/TIA, hearing disorder/deafness, and possible coronary artery disease Patient currently awake alert oriented to time place and person. He knows in the hospital and which hospital and he cannot tell me the date exactly of the name of the president, he has insight and follows commands and looks appropriate count. Patient told me his girlfriend called EMS for him to come to emergency room. Patient states he drinks 2-3 beers with no liquor. He states that he drinks every day. Also he smokes 1 pack/day and he was counseled to quit and he agrees but he declines nicotine patch. He declines illicit drugs. Patient woke up right away and told the bedside nurse and emergency room at 12 that he wants to be discharged otherwise he will leave A. I went to talk to the patient and he was doing well overall, I offered to monitor him for another 2 hours to see how he is doing clinically and if he tolerates lunch and he agrees. After lunch he still feels fine send he still asked to be discharged. Patient also denies any chest pain dyspnea coughing. No abdominal pain vomiting diarrhea. No dysuria urgency or change in frequency. No headache dizziness weakness or numbness in either extremity. No leg pain no falling. Patient currently is hemodynamically stable and afebrile. Labs reviewed and he has unremarkable CBC, BMP, liver enzymes. All normal. Lipase normal at 103. Serum alcohol level was elevated on admission 287 When I ask him if he has any depression he declines also he declines suicidal or homicidal ideation or hallucination or delusions. Patient has capacity to make medical decisions and we cannot hold the patient against his will however currently patient medically stable. Patient was requested to come to emergency room if he develops any further symptoms and he agreed. Also patient was counseled to quit drinking alcohol and he agrees. Problems and management plan were discussed with the patient and he verbalized understanding and acceptance Patient was found stable and can be discharged home in guarded prognosis however he needs follow-up as an outpatient. Patient was instructed to follow up with PCP within one week and patient agrees Physical exam Gen: patient is a AAOx3, no distress CVS: S1-S2, RRR, no murmur Lungs: B/L CTA, no wheezing Abdomen: soft, no distention, no tenderness, positive bowel sounds Extremity: no leg edema or induration Time spent more than 35 minutes Review of Systems Review of systems CONSTITUTIONAL: No fever, no malaise, no fatigue. HEENT: No recent visual problems or hearing problems. Denied any sore throat. CARDIOVASCULAR: No orthopnea, PND, no palpitations, no syncope. PULMONARY: No shortness of breath, no cough, no hemoptysis. GASTROINTESTINAL: No diarrhea, no nausea, no vomiting, no abdominal pain. Normoactive bowel sounds. NEUROLOGICAL: No headaches, no weakness, no numbness. HEMATOLOGICAL: Denies any bleeding or petechiae. GENITOURINARY: Denies any burning micturition, frequency, or urgency. MUSCULOSKELETAL/RHEUMATOLOGICAL: Denies any joint pain, swelling, or any muscle pain. ENDOCRINE: Denies any polyuria or polydipsia. Past Medical History Past Medical History: No Reported History, CVA/TIA, Hearing Disorder / Deafness, Myocardial Infarction ([place]) Additional Past Medical History / Comment(s): patient states he's had 2 strokes and 2 heart attacks (5/6 months ago) States he has never followed up with any physicians.right sided hearing loss Last Myocardial Infarction Date:: unknown History of Any Multi-Drug Resistant Organisms: None Reported Past Surgical History: Unable to Obtain Past Anesthesia/Blood Transfusion Reactions: No Reported Reaction Past Psychological History: No Psychological Hx Reported Smoking Status: Current every day smoker Past Alcohol Use History: Daily, Heavy Past Drug Use History: None Reported - Past Family History Mother Family Medical History: Cancer Additional Family Medical History / Comment(s): breast and ovarian Medications and Allergies Home Medications Medication Instructions Recorded Confirmed Type No Known Home Medications 09/17/24 09/17/24 History Allergies Allergy/AdvReac Type Severity Reaction Status Date / Time No Known Allergies Allergy Verified 09/17/24 08:45 Physical Exam Vitals: Vital Signs Temp Pulse Resp BP Pulse Ox 09/17/24 11:14 81 18 150/90 97 09/17/24 05:58 72 15 106/71 93 L 09/17/24 04:05 70 14 115/70 93 L 09/17/24 01:59 98.2 F 86 15 146/91 92 L Intake and Output 09/16/24 09/17/24 09/17/24 22:59 06:59 14:59 Other: Weight 58.967 kg GENERAL: The patient is alert and oriented x3, not in any acute distress. Well developed, well nourished. HEENT: Pupils are round and equally reacting to light. EOMI. No scleral icterus. No conjunctival pallor. Normocephalic, atraumatic. No pharyngeal erythema. No thyromegaly. CARDIOVASCULAR: S1 and S2 present. No murmurs, rubs, or gallops. PULMONARY: Chest is clear to auscultation, no wheezing , no crackles. ABDOMEN: Soft, nontender, nondistended, normoactive bowel sounds. No palpable organomegaly. MUSCULOSKELETAL: No joint swelling or deformity. EXTREMITIES: No cyanosis, clubbing, or pedal edema. NEUROLOGICAL: Gross neurological examination did not reveal any focal deficits. SKIN: No rashes. no petechiae. Results CBC & Chem 7: 09/17/24 02:06 09/17/24 02:06 Labs: Abnormal Lab Results - Last 24 Hours (Table) 09/17/24 Range/Units 02:06 BUN 8 L (9-20) mg/dL Serum Alcohol 287 H* mg/dL
[2024-09-17 17:16] VITALS: BP 151/88; PULSE 69
== END 2024-09-17 17:17 | disposition home or self-care (01) ==
LOC: EC 01:58 → 6NMEDSUR 03:06
PROVIDERS: ADMIT Hospitalist; ATTEND Hospitalist
DX: F10.929 Alcohol use, unspecified with intoxication, unspecified (principal); G92.8 Other toxic encephalopathy; F10.931 Alcohol use, unspecified with withdrawal delirium; F17.210 Nicotine dependence, cigarettes, uncomplicated; Y90.8 Blood alcohol level of 240 mg/100 ml or more; H91.91 Unspecified hearing loss, right ear; Z79.899 Other long term (current) drug therapy; Z71.6 Tobacco abuse counseling; Z71.41 Alcohol abuse counseling and surveillance of alcoholic; Z86.73 Personal history of transient ischemic attack (TIA), and cerebral infarction without residual deficits
CPT/HCPCS: 96360; 96361; 99285; 36415; 80053; 83690; 83735; 84100; 85025; G0378; G0480; 80320

== ENCOUNTER 2024-09-27 23:38 | Observation (INO) | payer OTHER ==
--- NOTE | 2024-09-27 23:50 | ED ---
General Adult HPI - General Stated complaint: etoh Time Seen by Provider: 09/27/24 23:39 - History of Present Illness Initial comments: Dictation was produced using [employer] dictation software. please excuse any grammatical, word or spelling errors. Chief Complaint: 49-year-old male found down at complex History of Present Illness: 49-year-old male presents emergency department after being found down at home. Patient allegedly had multiple alcoholic beverages not a reliable historian at this time. Per EMS he was found on the ground at his apartment complex. Apparently he had been on the ground for around 1 hour. EMS noticed a bump on his face he was concern perhaps that maybe had a neck injury was given a c-collar. States that he has been cooperative and alert. Patient has no complaints. He admits to drink multiple alcoholic beverages t azra. Unable to obtain ROS secondary to inebriation - Related Data Previous Rx's Medication Instructions Recorded Folic Acid 1 mg PO DAILY #30 tab 09/17/24 Multivitamins, Thera [Multivitamin 1 each PO DAILY #30 tab 09/17/24 (formulary)] Thiamine [Vitamin B-1] 100 mg PO DAILY #30 tablet 09/17/24 Allergies Allergy/AdvReac Type Severity Reaction Status Date / Time No Known Allergies Allergy Verified 09/27/24 23:53 Review of Systems ROS Statement: Those systems with pertinent positive or pertinent negative responses have been documented in the HPI. ROS Other: All systems not noted in ROS Statement are negative. Past Medical History Past Medical History: No Reported History, CVA/TIA, Hearing Disorder / Deafness, Myocardial Infarction ([place]) Additional Past Medical History / Comment(s): patient states he's had 2 strokes and 2 heart attacks (5/6 months ago) States he has never followed up with any physicians.right sided hearing loss Last Myocardial Infarction Date:: unknown History of Any Multi-Drug Resistant Organisms: None Reported Past Surgical History: Unable to Obtain Past Anesthesia/Blood Transfusion Reactions: No Reported Reaction Past Psychological History: No Psychological Hx Reported Smoking Status: Current every day smoker Past Alcohol Use History: Daily, Heavy Past Drug Use History: None Reported - Past Family History Mother Family Medical History: Cancer Additional Family Medical History / Comment(s): breast and ovarian General Exam - General Exam Comments Initial Comments: PHYSICAL EXAM: General Impression: Alert and oriented x3, not in acute distress, inebriated HEENT: Normocephalic atraumatic, extra-ocular movements intact, pupils equal and reactive to light bilaterally, mucous membranes moist. Cardiovascular: Heart regular rate and rhythm Chest: Able to complete full sentences, no retractions, no tachypnea Abdomen: abdomen soft, non-tender, non-distended, no organomegaly Musculoskeletal: Pulses present and equal in all extremities, no peripheral edema Motor: no focal deficits noted Neurological: CN II-XII grossly intact, no focal motor or sensory deficits noted Skin: Intact with no visualized rashes Psych: Normal affect and mood Course Vital Signs 09/27/24 23:43 Temperature 97.2 F L Pulse Rate 75 Respiratory 18 Rate Blood Pressure 147/95 O2 Sat by Pulse 96 Oximetry EKG Findings - EKG Comments: EKG Findings:: My EKG interpretation: Ventricular rate 74, sinus rhythm, SC interval 161, QRS 100, QTc 413. No SC prolongation, no QTC prolongation, no ST or T-wave changes noted. Overall, this EKG is unremarkable Medical Decision Making - Medical Decision Making Was pt. sent in by a medical professional or institution (, PA, SITE OPERATIONS MANAGER, urgent care, hospital, or longterm...) When possible be specific @ -[No] Did you speak to anyone other than the patient for history (EMS, parent, family, police, friend...)? What history was obtained from this source @ -EMS as described above Did you review nursing and triage notes (agree or disagree)? Why? @ -[I reviewed and agree with nursing and triage notes] Were old charts reviewed (outside hosp., previous admission, EMS record, old EKG, old radiological studies, urgent care reports/EKG's, longterm records)? Report findings @ -[No old charts were reviewed] Differential Diagnosis (chest pain, altered mental status, abdominal pain women, abdominal pain men, vaginal bleeding, musculoskeletal, weakness, fever, dyspnea, syncope, headache, dizziness, GI bleed, back pain, seizure, CVA, palpatations, mental health)? @ -Differential Altered Mental Status: Hypoglycemia, DKA, hypercapnia, ETOH, overdose, CO poisoning, trauma, myxedema coma, HTN encephalopathy, infection, encephalitis, psychosis, intercranial hemo rrhage, hepatic encephalopathy, meningitis, CVA, this is not meant to be an all- inclusive list EKG interpreted by me (3pts min.). @ -See above X-rays interpreted by me (1pt min.). @ -Office x-ray and chest x-ray shows no acute processes CT interpreted by me (1pt min.). @ -CT brain and C-spine shows no acute processes., CT chest abdomen pelvis shows no acute processes. U/S interpreted by me (1pt. min.). @ -[None done] What testing was considered but not performed or refused? (CT, X-rays, U/S, labs)? Why? @ -[None] What meds were considered but not given or refused? Why? @ -[None] Was smoking cessation discussed for >3mins.? @ -[No] Were there social determinants of health that impacted care today? How? (Homelessness, low income, unemployed, alcoholism, drug addiction, transportatio n, low edu. Level, literacy, decrease access to med. care, prison, rehab)? @ -Alcoholic Was there de-escalation of care discussed even if they declined (Discuss DNR or withdrawal of care, Hospice)? DNR status @ -[No] What co-morbidities impacted this encounter? (DM, HTN, Smoking, COPD, CAD, Cancer, CVA, ARF, Chemo, Hep., AIDS, mental health diagnosis, sleep apnea, morbid obesity)? @ -[None] Was patient admitted / discharged? Hospital course, mention meds given and route, prescriptions, significant lab abnormalities, going to OR and other pertinent info. @ -49-year-old male presents emergency department for alcohol intoxication after being found down. Vital signs upon arrival are within acceptable limits. Patient has no gross traumatic abnormalities on physical examination. He is well-appearing no acute distress. Laboratory evaluation obtained. Labs shows findings within acceptable limits except for serum alcohol 319. Fitzgerald scan shows no acute processes. Patient will be admitted observation for acute alcohol intoxication. Did you discuss the management of the patient with other professionals (professionals i.e. , PA, SITE OPERATIONS MANAGER, lab, RT, psych nurse, social services, plant manager, teacher, ship officer, casework manager)? Give summary @ -Discussed with hospitalist for admission Was critical care preformed (if so, how long)? @ -[No] Undiagnosed new problem with uncertain prognosis? @ -[No] Drug Therapy requiring intensive monitoring for toxicity (Heparin, Nitro, Insulin, Cardizem)? @ -[No] Were any procedures done? @ -[No] Diagnosis/symptom? Acute, or Chronic, or Acute on Chronic? Uncomplicated (without systemic symptoms) or Complicated (systemic symptoms)? @ -Acute alcohol intoxication Side effects of treatment? @ -[No] Exacerbation, Progression, or Severe Exacerbation? @ -[No] Poses a threat to life or bodily function? How? (Chest pain, [place], [place], pneumonia, PE, COPD, DKA, ARF, appy, cholecystitis, CVA, Diverticulitis, Homicidal, Suicidal, threat to staff... and all critical care pts) @ -yes - Lab Data Result diagrams: 09/27/24 23:53 09/27/24 23:53 Lab Results 09/27/24 09/27/24 09/27/24 Range/Units 23:52 23:53 23:53 WBC 7.9 (3.8-10.6) k/uL RBC 4.69 (4.30-5.90) m/uL Hgb 14.9 (13.0-17.5) gm/dL Hct 46.1 (39.0-53.0) % MCV 98.3 (80.0-100.0) fL MCH 31.7 (25.0-35.0) pg MCHC 32.2 (31.0-37.0) g/dL RDW 12.5 (11.5-15.5) % Plt Count 361 (150-450) k/uL MPV 6.8 Neutrophils % 35 % Lymphocytes % 52 % Monocytes % 5 % Eosinophils % 4 % Basophils % 1 % Neutrophils # 2.8 (1.3-7.7) k/uL Lymphocytes # 4.1 (1.0-4.8) k/uL Monocytes # 0.4 (0-1.0) k/uL Eosinophils # 0.3 (0-0.7) k/uL Basophils # 0.1 (0-0.2) k/uL PT 10.7 (10.0-12.5) sec INR 1.0 (<1.2) APTT 24.8 (22.0-30.0) sec Sodium (137-145) mmol/L Potassium (3.5-5.1) mmol/L Chloride (98-107) mmol/L Carbon Dioxide (22-30) mmol/L Anion Gap mmol/L BUN (9-20) mg/dL Creatinine (0.66-1.25) mg/dL Est GFR (CKD-EPI)AfAm (>60 ml/min/1.73 sqM) Est GFR (CKD-EPI)NonAf (>60 ml/min/1.73 sqM) Glucose (74-99) mg/dL Plasma Lactic Acid Jimbo (0.7-2.0) mmol/L Calcium (8.4-10.2) mg/dL Total Bilirubin (0.2-1.3) mg/dL AST (17-59) U/L ALT (4-49) U/L Alkaline Phosphatase (38-126) U/L Creatine Kinase (55-170) U/L Troponin I (0.000-0.034) ng/mL Total Protein (6.3-8.2) g/dL Albumin (3.5-5.0) g/dL Serum Alcohol mg/dL Blood Type AB Positive Blood Type Confirm Blood Type Recheck Bld Type Recheck Status Antibody Screen NEGATIVE Spec Expiration Date 09/27/24 09/27/24 09/27/24 Range/Units 23:53 23:53 23:53 WBC (3.8-10.6) k/uL RBC (4.30-5.90) m/uL Hgb (13.0-17.5) gm/dL Hct (39.0-53.0) % MCV (80.0-100.0) fL MCH (25.0-35.0) pg MCHC (31.0-37.0) g/dL RDW (11.5-15.5) % Plt Count (150-450) k/uL MPV Neutrophils % % Lymphocytes % % Monocytes % % Eosinophils % % Basophils % % Neutrophils # (1.3-7.7) k/uL Lymphocytes # (1.0-4.8) k/uL Monocytes # (0-1.0) k/uL Eosinophils # (0-0.7) k/uL Basophils # (0-0.2) k/uL PT (10.0-12.5) sec INR (<1.2) APTT (22.0-30.0) sec Sodium 142 (137-145) mmol/L Potassium 4.0 (3.5-5.1) mmol/L Chloride 104 (98-107) mmol/L Carbon Dioxide 26 (22-30) mmol/L Anion Gap 12 mmol/L BUN 6 L (9-20) mg/dL Creatinine 0.66 (0.66-1.25) mg/dL Est GFR (CKD-EPI)AfAm >90 (>60 ml/min/1.73 sqM) Est GFR (CKD-EPI)NonAf >90 (>60 ml/min/1.73 sqM) Glucose 83 (74-99) mg/dL Plasma Lactic Acid Jimbo (0.7-2.0) mmol/L Calcium 8.9 (8.4-10.2) mg/dL Total Bilirubin 0.4 (0.2-1.3) mg/dL AST 51 (17-59) U/L ALT 45 (4-49) U/L Alkaline Phosphatase 100 (38-126) U/L Creatine Kinase 278 H (55-170) U/L Troponin I <0.012 (0.000-0.034) ng/mL Total Protein 7.7 (6.3-8.2) g/dL Albumin 4.9 (3.5-5.0) g/dL Serum Alcohol 319 H* mg/dL Blood Type Blood Type Confirm Blood Type Recheck No Previous Record Bld Type Recheck Status CABO Indicated Antibody Screen Spec Expiration Date 09/30/2024 - 235209/27/24 09/28/24 Range/Units 23:59 00:53 WBC (3.8-10.6) k/uL RBC (4.30-5.90) m/uL Hgb (13.0-17.5) gm/dL Hct (39.0-53.0) % MCV (80.0-100.0) fL MCH (25.0-35.0) pg MCHC (31.0-37.0) g/dL RDW (11.5-15.5) % Plt Count (150-450) k/uL MPV Neutrophils % % Lymphocytes % % Monocytes % % Eosinophils % % Basophils % % Neutrophils # (1.3-7.7) k/uL Lymphocytes # (1.0-4.8) k/uL Monocytes # (0-1.0) k/uL Eosinophils # (0-0.7) k/uL Basophils # (0-0.2) k/uL PT (10.0-12.5) sec INR (<1.2) APTT (22.0-30.0) sec Sodium (137-145) mmol/L Potassium (3.5-5.1) mmol/L Chloride (98-107) mmol/L Carbon Dioxide (22-30) mmol/L Anion Gap mmol/L BUN (9-20) mg/dL Creatinine (0.66-1.25) mg/dL Est GFR (CKD-EPI)AfAm (>60 ml/min/1.73 sqM) Est GFR (CKD-EPI)NonAf (>60 ml/min/1.73 sqM) Glucose (74-99) mg/dL Plasma Lactic Acid Jimbo 2.5 H* (0.7-2.0) mmol/L Calcium (8.4-10.2) mg/dL Total Bilirubin (0.2-1.3) mg/dL AST (17-59) U/L ALT (4-49) U/L Alkaline Phosphatase (38-126) U/L Creatine Kinase (55-170) U/L Troponin I (0.000-0.034) ng/mL Total Protein (6.3-8.2) g/dL Albumin (3.5-5.0) g/dL Serum Alcohol mg/dL Blood Type Blood Type Confirm AB Positive Blood Type Recheck Bld Type Recheck Status Antibody Screen Spec Expiration Date Disposition Clinical Impression: Alcohol intoxication Disposition: ADMITTED IP TO THIS [facility] Condition: Fair Referrals: None,Stated [Primary Care Provider] - 1-2 days Decision Time: 02:58
[2024-09-28 00:28] LABS: Basophils # (A) 0.1 k/uL (0-0.2); Basophils % (A) 1 %; Eosinophils # (A) 0.3 k/uL (0-0.7); Eosinophils % (A) 4 %; HCT 46.1 % (39.0-53.0); HGB 14.9 gm/dL (13.0-17.5); Lymphocytes # (A) 4.1 k/uL (1.0-4.8); Lymphocytes % (A) 52 %; MCH 31.7 pg (25.0-35.0); MCHC 32.2 g/dL (31.0-37.0); MCV 98.3 fL (80.0-100.0); Mean Platelet Volume 6.8; Monocytes # (A) 0.4 k/uL (0-1.0); Monocytes % (A) 5 %; Neutrophils # (A) 2.8 k/uL (1.3-7.7); Neutrophils % (A) 35 %; Platelet Count 361 k/uL (150-450); RBC 4.69 m/uL (4.30-5.90); RDW 12.5 % (11.5-15.5); WBC 7.9 k/uL (3.8-10.6)
[2024-09-28 00:41] LABS: ALT 45 U/L (4-49); AST 51 U/L (17-59); African American GFR (CKD) >90 (>60 ml/min/1.73 sqM); Albumin 4.9 g/dL (3.5-5.0); Alkaline Phosphatase 100 U/L (38-126); Anion Gap 12 mmol/L; Blood Urea Nitrogen 6 mg/dL (9-20); Calcium 8.9 mg/dL (8.4-10.2); Carbon Dioxide 26 mmol/L (22-30); Chloride 104 mmol/L (98-107); Creatine Kinase 278 U/L (55-170); Glucose 83 mg/dL (74-99); Non-African American GFR(CKD) >90 (>60 ml/min/1.73 sqM); Sodium 142 mmol/L (137-145); Total Bilirubin 0.4 mg/dL (0.2-1.3); Total Protein 7.7 g/dL (6.3-8.2)
[2024-09-28 00:46] LABS: Partial Thromboplastin Time 24.8 sec (22.0-30.0); Prothrombin Time 10.7 sec (10.0-12.5)
[2024-09-28 01:29] LABS: Alcohol 319 mg/dL
--- NOTE | 2024-09-28 01:31 | CT ---
EXAM: CT Head Without Intravenous Contrast CLINICAL HISTORY: Trauma TECHNIQUE: Axial computed tomography images of the head/brain without intravenous contrast. CTDI is 45.2 mGy and DLP is 1113 mGy-cm. This CT exam was performed using one or more of the following dose reduction techniques: automated exposure control, adjustment of the mA and/or kV according to patient size, and/or use of iterative reconstruction technique. COMPARISON: No relevant prior studies available. FINDINGS: Brain: Ventricle and sulci normal in size and configuration for age. No acute stroke. No acute hemorrhage. No abnormal extra-axial fluid collection. Ventricles: No hydrocephalus. No midline shift. Bones/joints: Unremarkable. No acute fracture. Soft tissues: Unremarkable. Sinuses: Unremarkable as visualized. No acute sinusitis. IMPRESSION: No acute post-traumatic intracranial abnormality. EXAM: CT Cervical Spine Without Intravenous Contrast CLINICAL HISTORY: Trauma TECHNIQUE: Axial computed tomography images of the cervical spine without intravenous contrast. CTDI is 10.2 mGy and DLP is 339.6 mGy-cm. This CT exam was performed using one or more of the following dose reduction techniques: automated exposure control, adjustment of the mA and/or kV according to patient size, and/or use of iterative reconstruction technique. COMPARISON: No relevant prior studies available. FINDINGS: Vertebrae: No acute fracture. Maintenance of height of the vertebral bodies. No subluxation. Discs/spinal canal/neural foramina: Mild degenerative changes at C5-6. Soft tissues: Prevertebral soft tissues are unremarkable. Right apical subpleural blebs. Apparent asymmetrically enlarged left submandibular gland (axial series 304 image 69), not well characterized. IMPRESSION: No acute post-traumatic abnormality of the cervical spine. Apparent asymmetrically enlarged left submandibular gland, not well characterized; recommend correlation to site injury.
--- NOTE | 2024-09-28 01:48 | CT ---
ADDENDUM - Added by Johnny Adkins M.D. on 09/28/2024 1:48 AM (-05:00) ADDENDUM: Correction: CT Chest: Old distal left clavicle fracture. EXAM: CT Chest With Intravenous Contrast CLINICAL HISTORY: Trauma TECHNIQUE: Axial computed tomography images of the chest with intravenous contrast. CTDI is 7 mGy and DLP is 562.5 mGy-cm. This CT exam was performed using one or more of the following dose reduction techniques: automated exposure control, adjustment of the mA and/or kV according to patient size, and/or use of iterative reconstruction technique. COMPARISON: No relevant prior studies available. FINDINGS: Lungs: Minimal dependent atelectasis. No mass. No consolidation. Pleural space: Unremarkable. No pneumothorax. No pleural effusion. Heart: Unremarkable. No cardiomegaly. No significant pericardial effusion. No significant coronary artery calcifications. Bones/joints: Old left lateral seventh rib fracture. No acute fracture. Soft tissues: Unremarkable. Vasculature: Unremarkable. No thoracic aortic aneurysm. Lymph nodes: Unremarkable. No enlarged lymph nodes. IMPRESSION: No acute post-traumatic abnormality. EXAM: CT Abdomen and Pelvis With Intravenous Contrast CLINICAL HISTORY: Trauma TECHNIQUE: Axial computed tomography images of the abdomen and pelvis with intravenous contrast. CTDI is 6.7 mGy and DLP is 249.4 mGy-cm. This CT exam was performed using one or more of the following dose reduction techniques: automated exposure control, adjustment of the mA and/or kV according to patient size, and/or use of iterative reconstruction technique. COMPARISON: No relevant prior studies available. FINDINGS: ABDOMEN: Liver: Unremarkable. No mass. Gallbladder and bile ducts: Unremarkable. No calcified stones. No ductal dilation. Pancreas: Unremarkable. No mass. No ductal dilation. Spleen: Unremarkable. No splenomegaly. Adrenals: Unremarkable. No mass. Kidneys and ureters: No obstructive uropathy. No obstructing renal or ureteral calculi. No hydronephrosis or hydroureter. Stomach and bowel: No obstruction or ileus. No evidence for diverticulitis. PELVIS: Appendix: No findings to suggest acute appendicitis. Bladder: Well distended. No mass. Reproductive: Unremarkable as visualized. ABDOMEN and PELVIS: Intraperitoneal space: No free air. No free fluid. Bones/joints: No acute fracture. Soft tissues: Unremarkable. Vasculature: Atherosclerotic vascular calcifications.. No abdominal aortic aneurysm. Lymph nodes: Unremarkable. No enlarged lymph nodes.
--- NOTE | 2024-09-28 01:50 | XR ---
EXAM: XR Chest, 1 View CLINICAL HISTORY: Trauma TECHNIQUE: Frontal view of the chest. COMPARISON: No relevant prior studies available. FINDINGS: Lungs: No infiltrate. No atelectasis. No CHF. Pleural space: No pleural effusion. No pneumothorax. Heart: Unremarkable. No cardiomegaly. Mediastinum: Unremarkable. Normal mediastinal contour. Bones/joints: Old distal left clavicle fracture. Old lateral left seventh rib fracture. No acute fracture. IMPRESSION: No acute post-traumatic abnormality.
--- NOTE | 2024-09-28 01:51 | XR ---
EXAM: XR Pelvis, 1 or 2 Views CLINICAL HISTORY: Trauma TECHNIQUE: Frontal view of the pelvis. COMPARISON: No relevant prior studies available. FINDINGS: Bones/joints: Unremarkable. No acute fracture. No dislocation. Soft tissues: Unremarkable. IMPRESSION: No acute post-traumatic abnormality.
[2024-09-28] MEDS ORDERED: NALOXONE 0.4 MG/ML 1 ML VIAL IV PRN (02:58)
[2024-09-28] MEDS ORDERED: LORazepam 2 MG/ML INJ IV PRN ×3 (05:34)
[2024-09-28] MEDS: SODIUM CHLORIDE 0.9% 500 ML 500 ML IV STA (06:13)
--- NOTE | 2024-09-28 11:22 | P.HPIM ---
History of Present Illness 49-year-old male was brought to ER because the patient fell after he got intoxicated patient does not drink on regular basis patient does not have any elevated MCV. Patient wanted to go home although his lactate is elevated patient only had 500 cc bolus so far. Patient denied any withdrawal symptoms in the past patient is not willing to quit alcohol although only drinking occasionally. Patient is alert oriented x 3 sober at this time. Will not require any further hospitalization. REVIEW OF SYSTEMS: All other systems are negative except those mentioned in the HPI PHYSICAL EXAMINATION: GENERAL: The patient is alert and oriented x3, not in any acute distress. Well developed, well nourished. HEENT: Pupils are round and equally reacting to light. EOMI. No scleral icterus. No conjunctival pallor. Normocephalic, atraumatic. No pharyngeal erythema. No thyromegaly. CARDIOVASCULAR: S1 and S2 present. No murmurs, rubs, or gallops. PULMONARY: Chest is clear to auscultation, no wheezing or crackles. ABDOMEN: Soft, nontender, nondistended, normoactive bowel sounds. No palpable organomegaly. MUSCULOSKELETAL: No joint swelling or deformity. EXTREMITIES: No cyanosis, clubbing, or pedal edema. NEUROLOGICAL: Gross neurological examination did not reveal any focal deficits. SKIN: No rashes. Assessment and plan -Alcohol intoxication: Patient is sober patient can be discharged from that perspective as patient does not drink alcohol on regular basis and there is no biochemical evidence of for chronic alcoholism either patient does not need to be monitored for alcohol withdrawal at this time. All alcohol cessation counseling was provided -Lactic acidosis secondary to intravascular volume depletion patient will be given a bolus of IV fluid we will recheck the lactate and if it comes down below 2 patient will be discharged today Past Medical History Past Medical History: No Reported History, CVA/TIA, Hearing Disorder / Deafness, Myocardial Infarction ([place]) Additional Past Medical History / Comment(s): patient states he's had 2 strokes and 2 heart attacks. States he has never followed up with any physicians.right sided hearing loss Last Myocardial Infarction Date:: unknown History of Any Multi-Drug Resistant Organisms: None Reported Past Surgical History: Unable to Obtain Past Anesthesia/Blood Transfusion Reactions: No Reported Reaction Past Psychological History: No Psychological Hx Reported Smoking Status: Current every day smoker Past Alcohol Use History: Daily, Heavy Past Drug Use History: None Reported - Past Family History Mother Family Medical History: Cancer Additional Family Medical History / Comment(s): breast and ovarian Medications and Allergies Home Medications Medication Instructions Recorded Confirmed Type Folic Acid 1 mg PO DAILY #30 tab 09/17/24 Rx Multivitamins, Thera [Multivitamin 1 each PO DAILY #30 tab 09/17/24 Rx (formulary)] Thiamine [Vitamin B-1] 100 mg PO DAILY #30 tablet 09/17/24 Rx Allergies Allergy/AdvReac Type Severity Reaction Status Date / Time No Known Allergies Allergy Verified 09/27/24 23:53 Physical Exam Vitals: Vital Signs Temp Pulse Pulse Resp BP BP Pulse Ox 09/28/24 07:02 98.2 F 75 18 114/66 93 L 09/28/24 05:46 84 16 126/88 93 L 09/28/24 03:40 80 16 119/83 93 L 09/28/24 03:00 68 16 106/62 92 L 09/28/24 01:00 75 16 143/96 93 L 09/27/24 23:43 97.2 F L 75 18 147/95 96 Intake and Output 09/27/24 09/28/24 09/28/24 22:59 06:59 14:59 Other: # Voids 1 Weight 68.039 kg Results CBC & Chem 7: 09/27/24 23:53 09/27/24 23:53 Labs: Abnormal Lab Results - Last 24 Hours (Table) 09/27/24 09/28/24 09/28/24 Range/Units 23:53 00:53 04:22 BUN 6 L (9-20) mg/dL Plasma Lactic Acid Jimbo 2.5 H* 2.5 H* (0.7-2.0) mmol/L Creatine Kinase 278 H (55-170) U/L Serum Alcohol 319 H* mg/dL 09/28/24 Range/Units 07:28 BUN (9-20) mg/dL Plasma Lactic Acid Jimbo 2.5 H* (0.7-2.0) mmol/L Creatine Kinase (55-170) U/L Serum Alcohol mg/dL
--- NOTE | 2024-09-28 11:23 | P.DS ---
Providers Date of admission: 09/28/24 03:00 Attending physician: Karely Jo Primary care physician: Stated None Hospital Course: 49-year-old male was brought to ER because the patient fell after he got intoxicated patient does not drink on regular basis patient does not have any elevated MCV. Patient wanted to go home although his lactate is elevated patient only had 500 cc bolus so far. Patient denied any withdrawal symptoms in the past patient is not willing to quit alcohol although only drinking occasionally. Patient is alert oriented x 3 sober at this time. Will not require any further hospitalization. REVIEW OF SYSTEMS: All other systems are negative except those mentioned in the HPI PHYSICAL EXAMINATION: GENERAL: The patient is alert and oriented x3, not in any acute distress. Well developed, well nourished. HEENT: Pupils are round and equally reacting to light. EOMI. No scleral icterus. No conjunctival pallor. Normocephalic, atraumatic. No pharyngeal erythema. No thyromegaly. CARDIOVASCULAR: S1 and S2 present. No murmurs, rubs, or gallops. PULMONARY: Chest is clear to auscultation, no wheezing or crackles. ABDOMEN: Soft, nontender, nondistended, normoactive bowel sounds. No palpable organomegaly. MUSCULOSKELETAL: No joint swelling or deformity. EXTREMITIES: No cyanosis, clubbing, or pedal edema. NEUROLOGICAL: Gross neurological examination did not reveal any focal deficits. SKIN: No rashes. Assessment and plan -Alcohol intoxication: Patient is sober patient can be discharged from that perspective as patient does not drink alcohol on regular basis and there is no biochemical evidence of for chronic alcoholism either patient does not need to be monitored for alcohol withdrawal at this time. All alcohol cessation counseling was provided -Lactic acidosis secondary to intravascular volume depletion patient will be given a bolus of IV fluid we will recheck the lactate and if it comes down below 2 patient will be discharged today Past Medical History Patient Condition at Discharge: Fair Plan - Discharge Summary New Discharge Prescriptions: No Action Folic Acid 1 mg PO DAILY #30 tab Thiamine [Vitamin B-1] 100 mg PO DAILY #30 tablet Multivitamins, Thera [Multivitamin (formulary)] 1 each PO DAILY #30 tab Discharge Medication List Folic Acid 1 mg PO DAILY #30 tab 09/17/24 [Rx] Multivitamins, Thera [Multivitamin (formulary)] 1 each PO DAILY #30 tab 09/17/24 [Rx] Thiamine [Vitamin B-1] 100 mg PO DAILY #30 tablet 09/17/24 [Rx] Follow up Appointment(s)/Referral(s): None,Stated [Primary Care Provider] - 1-2 days Doyle Mcgee MD [REFERRING] - 1 Week Discharge Disposition: HOME SELF-CARE
[2024-09-28] MEDS: SODIUM CHLORIDE 0.9% 1,000 ML IV ONE (11:48)
[2024-09-28 14:08] VITALS: BP 152/85; PULSE 84; RESP 16; TEMP 98.9
== END 2024-09-28 16:36 | disposition home or self-care (01) ==
LOC: EC 23:38 → 4SSUR 09-28 03:00
PROVIDERS: ADMIT Hospitalist; ATTEND Hospitalist
DX: F10.929 Alcohol use, unspecified with intoxication, unspecified (principal); E87.20 Acidosis, unspecified; E86.9 Volume depletion, unspecified; Y90.7 Blood alcohol level of 200-239 mg/100 ml; F17.200 Nicotine dependence, unspecified, uncomplicated; Z71.41 Alcohol abuse counseling and surveillance of alcoholic; W19.XXXA Unspecified fall, initial encounter; Y92.009 Unspecified place in unspecified non-institutional (private) residence as the place of occurrence of the external cause
CPT/HCPCS: 96360; 96361; 99285; 36415; 93005; 86900; 86901; 80053; 82550; 83605; 84484; 85025; 85610; 85730; 86850; 72170; 71045; 72125; 70450; 71260; 74177; G0378; G0480; Q9967; 80320

== ENCOUNTER 2024-11-28 11:06 | Emergency (ER) | payer OTHER ==
[2024-11-28 11:27] VITALS: TEMP 98.1
[2024-11-28] MEDS: SODIUM CHLORIDE 0.9% 1,000 ML IV ONE (12:10)
--- NOTE | 2024-11-28 12:19 | ED ---
Fall HPI - General Chief Complaint: Fall Stated Complaint: Fall Time Seen by Provider: 11/28/24 11:14 Source: patient, family, EMS, RN notes reviewed Mode of arrival: EMS - History of Present Illness Initial Comments: This is a 49-year-old male who presents to the emergency department for a fall. Patient slipped and fell on ice this morning, landing on his back and hitting his head. Denies any loss of consciousness. Not taking any blood thinners. Currently complaining of pain to his head, neck, lower back, and right knee. Patient also noted to be intoxicated on arrival. States that he only had about 3 beers. MD Complaint: fall - Related Data Home Medications Medication Instructions Recorded Confirmed No Known Home Medications 09/28/24 11/28/24 Allergies Allergy/AdvReac Type Severity Reaction Status Date / Time No Known Allergies Allergy Verified 11/28/24 13:12 Review of Systems ROS Statement: Those systems with pertinent positive or pertinent negative responses have been documented in the HPI. ROS Other: All systems not noted in ROS Statement are negative. Past Medical History Past Medical History: No Reported History, CVA/TIA, Hearing Disorder / Deafness, Myocardial Infarction ([place]) Additional Past Medical History / Comment(s): patient states he's had 2 strokes and 2 heart attacks. States he has never followed up with any physicians.right sided hearing loss Last Myocardial Infarction Date:: unknown History of Any Multi-Drug Resistant Organisms: None Reported Past Surgical History: No Surgical Hx Reported Past Anesthesia/Blood Transfusion Reactions: No Reported Reaction Past Psychological History: No Psychological Hx Reported Smoking Status: Current every day smoker Past Alcohol Use History: Daily, Heavy Past Drug Use History: None Reported - Past Family History Mother Family Medical History: Cancer Additional Family Medical History / Comment(s): breast and ovarian General Exam General appearance: alert, appears intoxicated Head exam: Present: atraumatic, normocephalic, normal inspection Eye exam: Present: normal appearance, PERRL, EOMI. Absent: scleral icterus, conjunctival injection, periorbital swelling Respiratory exam: Present: normal lung sounds bilaterally. Absent: respiratory distress, wheezes, rales, rhonchi, stridor Cardiovascular Exam: Present: regular rate, normal rhythm GI/Abdominal exam: Present: soft, normal bowel sounds. Absent: distended, tenderness, guarding, rebound, rigid Extremities exam: Present: other (Mild tenderness to palpation over the right knee. No swelling or ecchymosis. Full range of motion. 2+ DP and PT pulses) Back exam: Present: other (Tenderness to palpation over the lower back) Neurological exam: Present: alert, oriented X3, CN II-XII intact Psychiatric exam: Present: normal affect, normal mood Skin exam: Present: warm, dry, intact, normal color. Absent: rash Course Vital Signs 11/28/24 11/28/24 11/28/24 11:21 11:35 12:15 Temperature 98.1 F Pulse Rate 73 71 68 Respiratory 18 16 18 Rate Blood Pressure 141/98 127/78 O2 Sat by Pulse 98 95 96 Oximetry 11/28/24 12:42 Temperature Pulse Rate 72 Respiratory 18 Rate Blood Pressure 123/82 O2 Sat by Pulse 95 Oximetry Medical Decision Making - Medical Decision Making This is a 49-year-old male who presents to the emergency department for a fall. Was pt. sent in by a medical professional or institution? @ -No Did you speak to anyone other than the patient for history? @ -No Did you review nursing and triage notes? @ -Yes, and I agree, it is accurate with regards to the patient's symptoms. Were old charts reviewed? @ -No Differential Diagnosis? @ -Differential Diagnosis Head Injury: Contusion, hematoma, intracranial hemorrhage, skull fracture, whiplash, concussion, this is not meant to be an all-inclusive list. EKG interpreted by me (3pts min.)? @ -Not obtained X-rays interpreted by me (1pt min.)? @ -X-ray of the lumbar spine and right knee obtained. My interpretation identifies no acute fractures. CT interpreted by me (1pt min.)? @ -Computed tomography scan of the brain and c-spine obtained. My interpretation identifies no evidence of an acute intracranial hemorrhage, skull fracture, or cervical spine fracture. U/S interpreted by me (1pt. min.)? @ -Not obtained What testing was considered but not performed? (CT, X-rays, U/S, labs)? Why? @ -None What meds were considered but not given? Why? @ -None Did you discuss the management of the patient with other professionals? @ -No Did you reconcile home meds? @ -No Was smoking cessation discussed for >3mins.? @ -I discussed smoking cessation for greater than 3 minutes. The risk of smoking were discussed with the patient including but not limited to risks of cancer, stroke, coronary artery disease and COPD. Also discussed with patient w ere multiple methods of quitting smoking. Lastly we discussed the financial cost of smoking. Was critical care preformed (if so, how long)? @ -No Were there social determinants of health that impacted care today? How? (Homelessness, low income, unemployed, alcoholism, drug addiction, transportation, low edu. Level, literacy, decrease access to med. care, snf, rehab)? @ -Alcoholism, contributing to the fall Was there de-escalation of care discussed even if they declined? (Discuss DNR or withdrawal of care, Hospice)? @ -No What co-morbidities impacted this encounter? (DM, HTN, Smoking, COPD, CAD, Cance r, CVA, Hep., AIDS, mental health diagnosis, sleep apnea, morbid obesity)? @ -Alcoholism, smoking Was patient admitted / discharged? @ -Discharged. Lab work demonstrates an alcohol level of [address] and is otherwise unremarkable. [address] scan of the brain/c-spine obtained revealing no acute process. X-ray of the lumbar spine and right knee obtained as well, also revealing no acute process. Pain was treated in the emergency department. He then requested discharge home. Family member was at bedside and able to drive him home and care for him in his intoxicated state. Advised ibuprofen and Tylenol as needed for pain relief. Patient discharged home with family member in stable condition. Case discussed with ED attending Dr. Smalls. Return precautions reviewed in depth, the patient is instructed to return to the emergency department with any new, worsening, or concerning symptoms. Patient and family member verbalized understanding. Undiagnosed new problem with uncertain prognosis? @ -None Drug Therapy requiring intensive monitoring for toxicity (Heparin, Nitro, Insulin, Cardizem)? @ -None Were any procedures done? @ -None Diagnosis/symptom? @ -Fall, alcohol intoxication, head injury Acute, or Chronic, or Acute on Chronic? @ -Acute Uncomplicated (without systemic symptoms) or Complicated (systemic symptoms)? @ -Uncomplicated Side effects of treatment? @ -None Exacerbation, Progression, or Severe Exacerbation] @ -Not applicable Poses a threat to life or bodily function? @ -No - Lab Data Result diagrams: 11/28/24 12:07 11/28/24 12:07 Lab Results 11/28/24 11/28/24 Range/Units 12:07 12:07 WBC 7.7 (3.8-10.6) k/uL RBC 5.14 (4.30-5.90) m/uL Hgb 16.3 (13.0-17.5) gm/dL Hct 51.9 (39.0-53.0) % MCV 101.0 H (80.0-100.0) fL MCH 31.6 (25.0-35.0) pg MCHC 31.3 (31.0-37.0) g/dL RDW 13.4 (11.5-15.5) % Plt Count 317 (150-450) k/uL MPV 7.5 Neutrophils % 57 % Lymphocytes % 30 % Monocytes % 3 % Eosinophils % 4 % Basophils % 2 % Neutrophils # 4.4 (1.3-7.7) k/uL Lymphocytes # 2.3 (1.0-4.8) k/uL Monocytes # 0.3 (0-1.0) k/uL Eosinophils # 0.3 (0-0.7) k/uL Basophils # 0.2 (0-0.2) k/uL Hypochromasia Slight Macrocytosis Slight Sodium 148 H (137-145) mmol/L Potassium 4.6 (3.5-5.1) mmol/L Chloride 109 H (98-107) mmol/L Carbon Dioxide 23 (22-30) mmol/L Anion Gap 16 mmol/L BUN 7 L (9-20) mg/dL Creatinine 0.64 L (0.66-1.25) mg/dL Est GFR (CKD-EPI)AfAm >90 (>60 ml/min/1.73 sqM) Est GFR (CKD-EPI)NonAf >90 (>60 ml/min/1.73 sqM) Glucose 94 (74-99) mg/dL Calcium 9.1 (8.4-10.2) mg/dL Phosphorus 4.1 (2.5-4.5) mg/dL Magnesium 2.2 (1.6-2.3) mg/dL Total Bilirubin 0.4 (0.2-1.3) mg/dL AST 29 (17-59) U/L ALT 20 (4-49) U/L Alkaline Phosphatase 85 (38-126) U/L Total Protein 8.0 (6.3-8.2) g/dL Albumin 5.0 (3.5-5.0) g/dL Serum Alcohol 291 H* mg/dL - Radiology Data Radiology results: report reviewed, image reviewed Disposition Clinical Impression: Fall, Head injury, Alcohol intoxication, Nicotine dependence Disposition: HOME SELF-CARE Instructions (If sedation given, give patient instructions): Fall Prevention (ED) Additional Instructions: Return to the emergency department with any new, worsening, or concerning symptoms. Alternate with ibuprofen and Tylenol as needed for pain relief. Follow up with your primary care provider in 1-2 days. Is patient prescribed a controlled substance at d/c from ED?: No Referrals: None,Stated [Primary Care Provider] - 1-2 days Time of Disposition: 13:33
[2024-11-28 12:32] VITALS: RESP 18
[2024-11-28 12:39] LABS: HCT 51.9 % (39.0-53.0); HGB 16.3 gm/dL (13.0-17.5); MCH 31.6 pg (25.0-35.0); MCHC 31.3 g/dL (31.0-37.0); RBC 5.14 m/uL (4.30-5.90); WBC 7.7 k/uL (3.8-10.6)
[2024-11-28 12:40] LABS: Basophils # (A) 0.2 k/uL (0-0.2); Basophils % (A) 2 %; Eosinophils # (A) 0.3 k/uL (0-0.7); Eosinophils % (A) 4 %; Hypochromasia Slight; Lymphocytes # (A) 2.3 k/uL (1.0-4.8); Lymphocytes % (A) 30 %; Macrocytosis Slight; Mean Platelet Volume 7.5; Monocytes # (A) 0.3 k/uL (0-1.0); Monocytes % (A) 3 %; Neutrophils # (A) 4.4 k/uL (1.3-7.7); Neutrophils % (A) 57 %; Platelet Count 317 k/uL (150-450); RDW 13.4 % (11.5-15.5)
[2024-11-28 12:43] LABS: ALT 20 U/L (4-49); AST 29 U/L (17-59); African American GFR (CKD) >90 (>60 ml/min/1.73 sqM); Alkaline Phosphatase 85 U/L (38-126); Anion Gap 16 mmol/L; Blood Urea Nitrogen 7 mg/dL (9-20); Calcium 9.1 mg/dL (8.4-10.2); Carbon Dioxide 23 mmol/L (22-30); Chloride 109 mmol/L (98-107); Glucose 94 mg/dL (74-99); Magnesium 2.2 mg/dL (1.6-2.3); Non-African American GFR(CKD) >90 (>60 ml/min/1.73 sqM); Phosphorus 4.1 mg/dL (2.5-4.5); Potassium 4.6 mmol/L (3.5-5.1); Sodium 148 mmol/L (137-145); Total Bilirubin 0.4 mg/dL (0.2-1.3)
[2024-11-28 12:45] VITALS: BP 123/82; PULSE 72
[2024-11-28 12:57] LABS: Alcohol 291 mg/dL
[2024-11-28] MEDS: HYDROmorphone 1 MG/ML 1 ML SYRINGE IVP STA (13:02)
--- NOTE | 2024-11-28 13:05 | CT ---
EXAMINATION TYPE: CT brain cspine wo con CT DLP: 1472.2 mGycm, Automated exposure control for dose reduction was used. DATE OF EXAM: 11/28/2024 12:42 PM COMPARISON: None.. CLINICAL INDICATION:Male, 49 years old with history of Fall; Fall, pain TECHNIQUE: Brain: Multiple axial CT images of the brain were obtained without IV contrast. Cspine: Axial CT images from the skull base to the inferior aspect of T2 we obtained without intraven ous contrast. Coronal and sagittal reformatted images were also reviewed. FINDINGS: Brain: Extra-axial spaces: No abnormal extra-axial fluid collections. Ventricular system: Within normal limits Cerebral parenchyma: No acute intraparenchymal hemorrhage or mass effect. The lynch-white junction is well differentiated. Cerebellum: Unremarkable. Mass effect: No evidence of midline shift. Intracranial vasculature: unremarkable Soft tissues: Right cheek subcutaneous 1.6 cm cystic lesion (series 203, image 17). Calvarium/osseous structures: No depressed skull fracture. Left anterior maxillary cystic 2.0 cm lesi on (series 203, image 6). Nasal septal deviation to the right. Paranasal sinuses and mastoid air cells: Clear. Visualized orbits: Orbital contents are intact. Cervical spine: Fracture: None. Osseous structures: Unremarkable Vertebral alignment: No spondylolisthesis. Levocurvature of the cervicothoracic spine. Spinal canal/Neural Foramina: No evidence of significant spinal canal narrowing. No evidence for sign ificant neural foraminal stenosis. Neck soft tissues: Prevertebral soft tissues are within normal limits. Other: The airway is patent. The lung apices are clear. Mild biapical paraseptal emphysematous change s. IMPRESSION: 1. No acute intracranial process. 2. No evidence of cervical spine fracture. 3. Cystic lesion involving the left anterior maxilla. Probably represents an odontogenic cyst. 4. Right cheek subcutaneous cystic lesion probably representing a benign lesion such as a sebaceous cyst/pilomatricoma. [facility], , 11/28/2024 1:02 PM
--- NOTE | 2024-11-28 13:28 | XR ---
EXAMINATION TYPE: XR lumbar spine 2 or 3V DATE OF EXAM: 11/28/2024 CLINICAL HISTORY: pain, fall TECHNIQUE: Three views of the lumbar spine are submitted. COMPARISON: None. FINDINGS: The lumbar spine shows satisfactory alignment without evidence of acute fracture or dislocation. Vert ebral body heights are within normal limits. Disc spaces are within normal limits. The overlying s oft tissue appears unremarkable. IMPRESSION: No acute fracture or dislocation is seen in the lumbar spine. [facility], , 11/28/2024 1:26 PM
--- NOTE | 2024-11-28 13:28 | XR ---
EXAMINATION TYPE: XR knee complete RT DATE OF EXAM: 11/28/2024 1:24 PM INDICATION: Patient age:Male; 49 years old; Reason for study: Fall; PHH. pain COMPARISON: None. TECHNIQUE: The Right knee(s) was examined in Frontal, lateral and oblique projections. FINDINGS: No evidence of any acute osseous pathology, soft tissue swelling, or joint effusion is no suzan. IMPRESSION: No acute osseous pathology. [facility], , 11/28/2024 1:25 PM
== END 2024-11-28 13:45 | disposition home or self-care (01) ==
LOC: EC 11:06
DX: S09.90XA Unspecified injury of head, initial encounter (principal); F10.129 Alcohol abuse with intoxication, unspecified; Z86.73 Personal history of transient ischemic attack (TIA), and cerebral infarction without residual deficits; F17.200 Nicotine dependence, unspecified, uncomplicated; Y90.8 Blood alcohol level of 240 mg/100 ml or more; W00.0XXA Fall on same level due to ice and snow, initial encounter
CPT/HCPCS: 36415; 80053; 83735; 84100; 85025; 72100; 73562; 72125; 70450; 99284; 99406; 96360; G0480; 80320

== ENCOUNTER 2025-01-20 02:00 | Emergency (ER) | payer OTHER ==
--- NOTE | 2025-01-20 02:41 | ED ---
Dizziness HPI <Dl Cadena - Last Filed: 01/20/25 09:27> - General Source: patient Mode of arrival: ambulatory Limitations: no limitations - History of Present Illness MD Complaint: dizziness -: month(s) Timing: gradual onset, intermittent Description: "room spinning" History of Same: No History of Trauma: Yes Severity: moderate Improves With: remaining still Worsens With: movement Associated Symptoms: denies other symptoms <Marcelino Renteria - Last Filed: 02/02/25 19:09> - General Chief Complaint: Dizziness Stated Complaint: Dizzy Time Seen by Provider: 01/20/25 02:29 - Related Data Home Medications Medication Instructions Recorded Confirmed No Known Home Medications 09/28/24 01/20/25 Allergies Allergy/AdvReac Type Severity Reaction Status Date / Time No Known Allergies Allergy Verified 01/20/25 09:16 Review of Systems ROS Other: All systems not noted in ROS Statement are negative. <Dl Cadena - Last Filed: 01/20/25 09:27> ROS Other: All systems not noted in ROS Statement are negative. Constitutional: Denies: fever, chills, weakness Eyes: Denies: vision change ENT: Denies: hearing loss Respiratory: Denies: cough, dyspnea Cardiovascular: Denies: chest pain, palpitations, edema, syncope Gastrointestinal: Denies: abdominal pain, nausea, vomiting, melena Genitourinary: Denies: dysuria, hematuria Musculoskeletal: Denies: back pain Skin: Denies: rash Neurological: Reports: vertigo. Denies: headache, weakness, numbness, paresthesias, confusion <Marcelino Renteria - Last Filed: 02/02/25 19:09> ROS Statement: Those systems with pertinent positive or pertinent negative responses have been documented in the HPI. 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 States he has never followed up with any physicians.right sided hearing loss Last Myocardial Infarction Date:: unknown History of Any Multi-Drug Resistant Organisms: None Reported Past Surgical History: No Surgical Hx Reported Past Anesthesia/Blood Transfusion Reactions: No Reported Reaction Past Psychological History: No Psychological Hx Reported Smoking Status: Current every day smoker Past Alcohol Use History: Daily, Heavy Past Drug Use History: None Reported - Past Family History Mother Family Medical History: Cancer Additional Family Medical History / Comment(s): breast and ovarian <Marcelino Renteria Filed: 02/02/25 19:09> General Exam Limitations: no limitations General appearance: alert, in no apparent distress Head exam: Present: atraumatic, normocephalic Eye exam: Present: normal appearance, PERRL, EOMI, nystagmus. Absent: scleral icterus, conjunctival injection ENT exam: Present: mucous membranes dry Neck exam: Present: normal inspection, full ROM. Absent: tenderness, meningismus Respiratory exam: Present: normal lung sounds bilaterally. Absent: respiratory distress, wheezes, rales, rhonchi, stridor, accessory muscle use Cardiovascular Exam: Present: regular rate, normal rhythm, normal heart sounds. Absent: systolic murmur, diastolic murmur, rubs, gallop GI/Abdominal exam: Present: soft. Absent: distended, tenderness, guarding, rebound, rigid, mass Extremities exam: Present: normal inspection, normal capillary refill. Absent: pedal edema, calf tenderness Back exam: Present: normal inspection. Absent: CVA tenderness (R), CVA tenderness (L) Neurological exam: Present: alert, oriented X3, CN II-XII intact. Absent: motor sensory deficit Skin exam: Present: warm, dry, intact, normal color. Absent: rash <Marcelino Renteria Filed: 02/02/25 19:09> Course Vital Signs 01/20/25 01/20/25 01/20/25 02:08 03:04 06:26 Temperature 97.9 F Pulse Rate 92 73 70 Respiratory 18 18 18 Rate Blood Pressure 142/96 102/79 98/60 O2 Sat by Pulse 96 98 100 Oximetry 01/20/25 09:39 Temperature 98.0 F Pulse Rate 80 Respiratory 20 Rate Blood Pressure 112/70 O2 Sat by Pulse 100 Oximetry EKG Findings - EKG Results: EKG: interpreted by ERMBrendan, sinus rhythm (Rate 79 bpm), normal QRS, normal ST/T - Blocks, [place], Hypertrophy, ST Abn: QRS axis and voltage: left axis deviation (-30 to -90) (Borderline) <MyraMarcelino Filed: 02/02/25 19:09> Medical Decision Making - Lab Data Result diagrams: 01/20/25 02:57 01/20/25 02:57 <Dl Cadena - Last Filed: 01/20/25 09:27> - Lab Data Result diagrams: 01/20/25 02:57 01/20/25 02:57 <Marcelino Renteria - Last Filed: 02/02/25 19:09> - Medical Decision Making Patient was cleared by the previous provider. This includes a CT brain which I interpreted the report that showed no obvious acute intracranial process.Patient ambulatory and is currently clinically sober at 0925. Patient will be discharged home at this time. Patient signed out to me pending reevaluation for sobriety. Diagnosis/symptom? @ -Alcohol intoxication Acute, or Chronic, or Acute on Chronic? @ -Acute Uncomplicated (without systemic symptoms) or Complicated (systemic symptoms)? @ -Uncomplicated Side effects of treatment? @ -None Exacerbation, Progression, or Severe Exacerbation] @ -No Poses a threat to life or bodily function? @ -Unlikely at this time (Dl Cadena) Was pt. sent in by a medical professional or institution (, PA, [employer]ST[employer]ER LOCKSTITCH, urgent care, hospital, or half-way...) When possible be specific @ -[No] Did you speak to anyone other than the patient for history (EMS, parent, family, police, friend...)? What history was obtained from this source @ -[No] Did you review nursing and triage notes (agree or disagree)? Why? @ -[I reviewed and agree with nursing and triage notes] Were old charts reviewed (outside hosp., previous admission, EMS record, old EKG, old radiological studies, urgent care reports/EKG's, half-way records)? Report findings @ -[No old charts were reviewed] Differential Diagnosis (chest pain, altered mental status, abdominal pain women, abdominal pain men, vaginal bleeding, weakness, fever, dyspnea, syncope, headache, dizziness, GI bleed, back pain, seizure, CVA, palpatations, mental health, musculoskeletal)? @ -[Differential Dizziness: Benign paroxysmal positional Vertigo, Meniere's disease, otitis media, acoustic neuroma, vertebrobasilar insufficiency, cerebellar stroke, encephalitis, hypovolemic, arrhythmia, coronary artery syndrome, anemia, this is not meant to be an all-inclusive list EKG interpreted by me (3pts min.). @ -[I interpreted as above] X-rays interpreted by me (1pt min.). @ -[None done] CT interpreted by me (1pt min.). @ -[None done] U/S interpreted by me (1pt. min.). @ -[None done] What testing was considered but not performed or refused? (CT, X-rays, U/S, labs)? Why? @ -[None] What meds were considered but not given or refused? Why? @ -[None] Did you discuss the management of the patient with other professionals (professionals i.e. , PA, [employer]ST[employer], lab, RT, psych nurse, psychologist social, lacquer polisher, teacher, deputy probation officer, caser)? Give summary @ -[No] Was smoking cessation discussed for >3mins.? @ -[No] Was critical care preformed (if so, how long)? @ -[No] Were there social determinants of health that impacted care today? How? (Homelessness, low income, unemployed, alcoholism, drug addiction, transportation, low edu. Level, literacy, decrease access to med. care, group home, rehab)? @ -[No] Was there de-escalation of care discussed even if they declined (Discuss DNR or withdrawal of care, Hospice)? DNR status @ -[No] What co-morbidities impacted this encounter? (DM, HTN, Smoking, COPD, CAD, Cancer, CVA, ARF, Chemo, Hep., AIDS, mental health diagnosis, sleep apnea, morbid obesity)? @ -[None] Was patient admitted / discharged? Hospital course, mention meds given and route, prescriptions, significant lab abnormalities, going to OR and other pertinent info. @ -[This patient is a 49-year-old man here with dizziness, and found to be intoxicated. The patient's workup largely unremarkable other than the intoxication. The patient being observed pending sobriety, and is signed out to the oncoming physician. All treatments are based on ideal body weight as in ED triage (Marcelino Renteria) - Lab Data Lab Results 01/20/25 01/20/25 01/20/25 Range/Units 02:57 02:57 02:57 WBC 13.17 H (4.50-10.00) 10*3/uL RBC 4.37 L (4.40-5.60) 10*6/uL Hgb 14.4 (13.0-17.0) g/dL Hct 41.3 (39.6-50.0) % MCV 94.5 (80.0-97.0) fL MCH 33.0 H (27.0-32.0) pg MCHC 34.9 (32.0-37.0) g/dL Plt Count 272 (140-440) 10*3/uL MPV 9.3 L (9.5-12.2) fL Immature Gran % (Auto) 0.2 % Neutrophils % 59.6 % Lymphocytes % 28.0 % Monocytes % 8.0 % Eosinophils % 3.1 % Basophils % 1.1 % Immature Gran # 0.03 (0.00-0.04) 10*3/uL Neutrophils # 7.84 H (1.80-7.70) 10*3/uL Lymphocytes # 3.69 (0.90-5.00) 10*3/uL Monocytes # 1.05 H (0.20-1.00) 10*3/uL Eosinophils # 0.41 H (0.04-0.35) 10*3/uL Basophils # 0.15 H (0.00-0.10) 10*3/uL Sodium 137 (137-145) mmol/L Potassium 4.1 (3.5-5.1) mmol/L Chloride 101 (98-107) mmol/L Carbon Dioxide 21 L (22-30) mmol/L Anion Gap 15 mmol/L BUN 13 (9-20) mg/dL Creatinine 0.75 (0.66-1.25) mg/dL Est GFR (CKD-EPI)AfAm >90 (>60 ml/min/1.73 sqM) Est GFR (CKD-EPI)NonAf >90 (>60 ml/min/1.73 sqM) Glucose 89 (74-99) mg/dL Plasma Lactic Acid Jimbo (0.7-2.0) mmol/L Calcium 9.4 (8.4-10.2) mg/dL Magnesium 2.1 (1.6-2.3) mg/dL Total Bilirubin 0.5 (0.2-1.3) mg/dL AST 39 (17-59) U/L ALT 23 (4-49) U/L Alkaline Phosphatase 85 (38-126) U/L Total Protein 7.3 (6.3-8.2) g/dL Albumin 4.5 (3.5-5.0) g/dL Urine Color Colorless Urine Appearance Clear (Clear) Urine pH 5.0 (5.0-8.0) Ur Specific [place] 1.002 (1.001-1.035) Urine Protein Negative (Negative) Urine Glucose (UA) Negative (Negative) Urine Ketones Negative (Negative) Urine Blood Negative (Negative) Urine Nitrite Negative (Negative) Urine Bilirubin Negative (Negative) Urine Urobilinogen <2.0 (<2.0) mg/dL Ur Leukocyte Esterase Negative (Negative) Serum Alcohol 201 H* mg/dL 01/20/25 Range/Units 02:57 WBC (4.50-10.00) 10*3/uL RBC (4.40-5.60) 10*6/uL Hgb (13.0-17.0) g/dL Hct (39.6-50.0) % MCV (80.0-97.0) fL MCH (27.0-32.0) pg MCHC (32.0-37.0) g/dL Plt Count (140-440) 10*3/uL MPV (9.5-12.2) fL Immature Gran % (Auto) % Neutrophils % % Lymphocytes % % Monocytes % % Eosinophils % % Basophils % % Immature Gran # (0.00-0.04) 10*3/uL Neutrophils # (1.80-7.70) 10*3/uL Lymphocytes # (0.90-5.00) 10*3/uL Monocytes # (0.20-1.00) 10*3/uL Eosinophils # (0.04-0.35) 10*3/uL Basophils # (0.00-0.10) 10*3/uL Sodium (137-145) mmol/L Potassium (3.5-5.1) mmol/L Chloride (98-107) mmol/L Carbon Dioxide (22-30) mmol/L Anion Gap mmol/L BUN (9-20) mg/dL Creatinine (0.66-1.25) mg/dL Est GFR (CKD-EPI)AfAm (>60 ml/min/1.73 sqM) Est GFR (CKD-EPI)NonAf (>60 ml/min/1.73 sqM) Glucose (74-99) mg/dL Plasma Lactic Acid Jimbo 1.8 (0.7-2.0) mmol/L Calcium (8.4-10.2) mg/dL Magnesium (1.6-2.3) mg/dL Total Bilirubin (0.2-1.3) mg/dL AST (17-59) U/L ALT (4-49) U/L Alkaline Phosphatase (38-126) U/L Total Protein (6.3-8.2) g/dL Albumin (3.5-5.0) g/dL Urine Color Urine Appearance (Clear) Urine pH (5.0-8.0) Ur Specific [place] (1.001-1.035) Urine Protein (Negative) Urine Glucose (UA) (Negative) Urine Ketones (Negative) Urine Blood (Negative) Urine Nitrite (Negative) Urine Bilirubin (Negative) Urine Urobilinogen (<2.0) mg/dL Ur Leukocyte Esterase (Negative) Serum Alcohol mg/dL Disposition Is patient prescribed a controlled substance at d/c from ED?: No Time of Disposition: 09:28 <Dl Cadena - Last Filed: 01/20/25 09:27> <Marcelino Renteria - Last Filed: 02/02/25 19:09> Clinical Impression: Alcohol intoxication Disposition: HOME SELF-CARE Condition: Good Instructions (If sedation given, give patient instructions): Alcohol Intoxication (ED) Referrals: [facility] [NON-STAFF] - 1-2 days (Contact a primary care office to become established with a provider. ) None,Stated [Primary Care Provider] - 1-2 days Forms: [facility] PCPs
[2025-01-20] MEDS: SODIUM CHLORIDE 0.9% 1,000 ML IV ONE (02:53)
[2025-01-20 03:27] LABS: Basophils # (A) 0.15 10*3/uL (0.00-0.10); Basophils % (A) 1.1 %; Eosinophils # (A) 0.41 10*3/uL (0.04-0.35); Eosinophils % (A) 3.1 %; HCT 41.3 % (39.6-50.0); HGB 14.4 g/dL (13.0-17.0); Lymphocytes # (A) 3.69 10*3/uL (0.90-5.00); MCHC 34.9 g/dL (32.0-37.0); MCV 94.5 fL (80.0-97.0); Mean Platelet Volume 9.3 fL (9.5-12.2); Monocytes # (A) 1.05 10*3/uL (0.20-1.00); Neutrophils # (A) 7.84 10*3/uL (1.80-7.70); Neutrophils % (A) 59.6 %; Platelet Count 272 10*3/uL (140-440); RBC 4.37 10*6/uL (4.40-5.60); RDW 12.1 % (11.5-14.5); WBC 13.17 10*3/uL (4.50-10.00)
[2025-01-20 03:52] LABS: ALT 23 U/L (4-49); AST 39 U/L (17-59); African American GFR (CKD) >90 (>60 ml/min/1.73 sqM); Albumin 4.5 g/dL (3.5-5.0); Alkaline Phosphatase 85 U/L (38-126); Anion Gap 15 mmol/L; Blood Urea Nitrogen 13 mg/dL (9-20); Calcium 9.4 mg/dL (8.4-10.2); Carbon Dioxide 21 mmol/L (22-30); Chloride 101 mmol/L (98-107); Glucose 89 mg/dL (74-99); Magnesium 2.1 mg/dL (1.6-2.3); Non-African American GFR(CKD) >90 (>60 ml/min/1.73 sqM); Potassium 4.1 mmol/L (3.5-5.1); Sodium 137 mmol/L (137-145); Total Bilirubin 0.5 mg/dL (0.2-1.3); Total Protein 7.3 g/dL (6.3-8.2)
[2025-01-20 04:10] LABS: Appearance,Urine Clear (Clear); Bilirubin,Urine Negative (Negative); Blood,Urine Negative (Negative); Color,Urine Colorless; Glucose,Urine (UA) Negative (Negative); Ketones,Urine Negative (Negative); Leukocyte Esterase,Urine Negative (Negative); Nitrite,Urine Negative (Negative); Protein,Urine Negative (Negative); Specific Gravity,Urine 1.002 (1.001-1.035); Urobilinogen,Urine <2.0 mg/dL (<2.0)
[2025-01-20 04:53] LABS: Alcohol 201 mg/dL
--- NOTE | 2025-01-20 07:40 | CT ---
EXAMINATION TYPE: CT brain wo con DATE OF EXAM: 01/20/2025 COMPARISON: 11/28/2024 CLINICAL INDICATION: Male, 49 years old with history of fall injury; [facility], Fall, injury, dizzy TECHNIQUE: CT of the brain performed without contrast with sagittal and coronal reformats. CT DLP: 1097.[address] CTDI: mGy Automated exposure control for dose reduction was used. FINDINGS: There is no acute intracranial hemorrhage, mass effect, or midline shift identified. The ventricles and sulci are within normal limits in size. The globes are intact and the visualized sinuses are misha ar. Stable cystic lesion of the left maxilla. Subcutaneous sebaceous cyst on the right is also stable . IMPRESSION: No acute intracranial hemorrhage, mass effect, or midline shift is seen. [facility], , 01/20/2025 7:37 AM
[2025-01-20 09:40] VITALS: BP 112/70; PULSE 80; RESP 20; TEMP 98
== END 2025-01-20 09:40 | disposition home or self-care (01) ==
LOC: EC 02:00
DX: F10.129 Alcohol abuse with intoxication, unspecified (principal); F17.200 Nicotine dependence, unspecified, uncomplicated
CPT/HCPCS: 36415; 93005; 80053; 83605; 83735; 85025; 81003; 70450; 99284; 96360; G0480; 80320

== ENCOUNTER 2025-02-22 14:31 | Emergency (ER) | payer OTHER ==
--- NOTE | 2025-02-22 14:46 | ED ---
General Adult HPI - General Source: patient, police Mode of arrival: ambulatory <Jermain Davison - Last Filed: 02/22/25 19:13> <Marcelino Renteria - Last Filed: 02/23/25 03:02> - General Chief complaint: Psychiatric Symptoms Stated complaint: Petition Time Seen by Provider: 02/22/25 14:34 - History of Present Illness Initial comments: Dictation was produced using Beta Dash dictation software. please excuse any grammatical, word or spelling errors. Chief Complaint: 49-year-old male presents with alcohol tox occasion suicidal ideation History of Present Illness: Patient 49-year-old alcoholic male presents emergency department for alcohol intoxication and suicidal ideation. Patient according to law enforcement mentioned that he was suicidal. Law enforcement was at a senior care house where they worked evaluating another individual. Patient allegedly yelled at police stating that he was suicidal. Patient was escorted by police to the emergency department. Patient states he was drinking large amounts of alcohol today. Unable to obtain detailed ROS secondary to mental status (Jermain Davison) - Related Data Home Medications Medication Instructions Recorded Confirmed No Known Home Medications 09/28/24 02/22/25 Allergies Allergy/AdvReac Type Severity Reaction Status Date / Time No Known Allergies Allergy Verified 02/22/25 15:57 Review of Systems ROS Other: All systems not noted in ROS Statement are negative. <Jermain Davison - Last Filed: 02/22/25 19:13> ROS Other: All systems not noted in ROS Statement are negative. <Marcelino Renteria - Last Filed: 02/23/25 03:02> ROS Statement: Those systems with pertinent positive or pertinent negative responses have been documented in the HPI. Past Medical History Past Medical History: No Reported History, CVA/TIA, Hearing Disorder / Deafness, Myocardial Infarction ([place]) Additional Past Medical History / Comment(s): patient states he's had 2 strokes and 2 heart attacks. States he has never followed up with any physicians.right sided hearing loss Last Myocardial Infarction Date:: unknown History of Any Multi-Drug Resistant Organisms: None Reported Past Surgical History: No Surgical Hx Reported Past Anesthesia/Blood Transfusion Reactions: No Reported Reaction Past Psychological History: No Psychological Hx Reported Smoking Status: Current every day smoker Past Alcohol Use History: Daily, Heavy Past Drug Use History: None Reported - Past Family History Mother Family Medical History: Cancer Additional Family Medical History / Comment(s): breast and ovarian <Jermain Davison - Last Filed: 02/22/25 19:13> General Exam <Jermain Davison - Last Filed: 02/22/25 19:13> - General Exam Comments Initial Comments: General: Well-appearing, nontoxic, inebriated, malodorous Head: Normocephalic, atraumatic Eyes: PERRLA, EOMI ENT: Airway patent Chest: Nonlabored breathing Skin: No visual rash, normal skin tone Neuro: Alert and oriented 3 Musculoskeletal: No gross abnormalities (Jermain Davison) Course Vital Signs 02/22/25 02/22/25 02/22/25 17:42 19:36 20:31 Pulse Rate 75 80 75 Respiratory 18 18 18 Rate Blood Pressure 120/75 98/62 98/56 O2 Sat by Pulse 97 97 Oximetry 02/22/25 02/22/25 02/22/25 21:00 22:00 23:00 Pulse Rate 72 72 84 Respiratory 18 18 18 Rate Blood Pressure 104/57 90/55 101/65 O2 Sat by Pulse 97 96 Oximetry 02/23/25 02/23/25 02/23/25 00:00 01:00 02:00 Pulse Rate 82 74 76 Respiratory 18 18 18 Rate Blood Pressure 112/75 108/68 110/72 O2 Sat by Pulse 98 97 97 Oximetry 02/23/25 03:00 Pulse Rate 74 Respiratory 18 Rate Blood Pressure 113/60 O2 Sat by Pulse 97 Oximetry EKG Findings - EKG Comments: EKG Findings:: My EKG interpretation: Ventricular rate 60, sinus rhythm, SD 143, cures 94, QTc 417. No SD prolongation, no QTC prolongation, no ST or T-wave changes noted. Overall, this EKG is unremarkable <Jermain Davison - Last Filed: 02/22/25 19:13> Procedures - Restraint - Face to Face Restraint Occurrence 1 Patient's Immediate Situation: Endangers self safety, Endangers others' safety, Endangers staff safety Patient's Reaction to the Intervention: Suspicious Patient's Medical & Behavioral Condition: Awake, Alert Need to Continue or Terminate Restraint or Seclusion: Continue Face to Face Eval of Restraint Date: 02/22/25 Face to Face Eval of Restraint Time: 14:35 <Jermain Davison - Last Filed: 02/22/25 19:13> Medical Decision Making - Lab Data Result diagrams: 02/22/25 15:16 02/22/25 15:16 <Jermian Davison - Last Filed: 02/22/25 19:13> - Lab Data Result diagrams: 02/22/25 15:16 02/22/25 15:16 <MontrellbuckyMarcelino - Last Filed: 02/23/25 03:02> - Medical Decision Making Was pt. sent in by a medical professional or institution (, PA, TECHNOLOGY OFFICER, urgent care, hospital, or alf...) When possible be specific @ -No Did you speak to anyone other than the patient for history (EMS, parent, family, police, friend...)? What history was obtained from this source @ -See above Did you review nursing and triage notes (agree or disagree)? Why? @ -I reviewed and agree with nursing and triage notes Were old charts reviewed (outside hosp., previous admission, EMS record, old EKG, old radiological studies, urgent care reports/EKG's, alf records)? Report findings @ -No old charts were reviewed Differential Diagnosis (chest pain, altered mental status, abdominal pain women, abdominal pain men, vaginal bleeding, musculoskeletal, weakness, fever, dyspnea, syncope, headache, dizziness, GI bleed, back pain, seizure, CVA, palpatations, mental health)? @ -Differential Mental Health: Depression, anxiety, bipolar, psychosis, schizophrenia, borderline personality, situational depression, adjustment disorder, behavioral disorder, brain tumor, malingering, substance abuse, encephalopathy, medication reaction, dementia, hypothyroidism, degenerative neurologic disorder, lupus.... This is not meant to be all-inclusive list EKG interpreted by me (3pts min.). @ -See above X-rays interpreted by me (1pt min.). @ -None done CT interpreted by me (1pt min.). @ -None done U/S interpreted by me (1pt. min.). @ -None done What testing was considered but not performed or refused? (CT, X-rays, U/S, labs)? Why? @ -None What meds were considered but not given or refused? Why? @ -None Was smoking cessation discussed for >3mins.? @ -No Were there social determinants of health that impacted care today? How? (Homelessness, low income, unemployed, alcoholism, drug addiction, transportation, low edu. Level, literacy, decrease access to med. care, half-way, rehab)? @ -Alcohol dependence Was there de-escalation of care discussed even if they declined (Discuss DNR or withdrawal of care, Hospice)? DNR status @ -No What co-morbidities impacted this encounter? (DM, HTN, Smoking, COPD, CAD, Cancer, CVA, ARF, Chemo, Hep., AIDS, mental health diagnosis, sleep apnea, morbid obesity)? @ -None Was patient admitted / discharged? Hospital course, mention meds given and route, prescriptions, significant lab abnormalities, going to OR and other pertinent info. @ -49-year-old male with alcohol tox occasion and suicidal ideation. Patient had a run in with police and became confrontational. Patient is pleasant at the bedside. Laboratory evaluation obtained. Mild lactic acidosis 2.5. Serum alcohol 230. Patient pending sobriety for EPS evaluation. Did you discuss the management of the patient with other professionals (professionals i.e. , PA, TECHNOLOGY OFFICER, lab, RT, psych nurse, social insurance analyst, dean of instruction, teacher, public information officer, case making machine operator)? Give summary @ -Case was discussed with police as described above Was critical care preformed (if so, how long)? @ -No Undiagnosed new problem with uncertain prognosis? @ -No Drug Therapy requiring intensive monitoring for toxicity (Heparin, Nitro, Insulin, Cardizem)? @ -No Were any procedures done? @ -No Diagnosis/symptom? Acute, or Chronic, or Acute on Chronic? Uncomplicated (without systemic symptoms) or Complicated (systemic symptoms)? @ -Suicidal ideation Side effects of treatment? @ -No Exacerbation, Progression, or Severe Exacerbation? @ -No Poses a threat to life or bodily function? How? (Chest pain, USA, [place], pneumonia, PE, COPD, DKA, ARF, appy, cholecystitis, CVA, Diverticulitis, Homicidal, Suicidal, threat to staff... and all critical care pts) @ -yes Patient care signed out to oncoming physician for follow-up of EPS recommendations after sobriety (Jermain Davison) Was patient admitted / discharged? Hospital course, mention meds given and route, prescriptions, significant lab abnormalities, going to OR and other pertinent info. @ -[This patient is signed out pending sobriety and EPS evaluation. The patient has been seen and a safety plan was devised by EPS. Undiagnosed new problem with uncertain prognosis? @ -[No] Drug Therapy requiring intensive monitoring for toxicity (Heparin, Nitro, Insulin, Cardizem)? @ -[No] Were any procedures done? @ -[No] Diagnosis/symptom? @ -[Alcohol abuse Mood disorder Acute, or Chronic, or Acute on Chronic? @ -[Acute on chronic Uncomplicated (without systemic symptoms) or Complicated (systemic symptoms)? @ -[Uncomplicated Side effects of treatment? @ -[No] Exacerbation, Progression, or Severe Exacerbation? @ -[No] Poses a threat to life or bodily function? How? (Chest pain, USA, [place], pneumonia, PE, COPD, DKA, ARF, appy, cholecystitis, CVA, Diverticulitis, Homicidal, Suicidal, threat to staff... and all critical care pts) @ -[No] All treatments are based on ideal body weight as in ED triage (Marcelino Renteria) - Lab Data Lab Results 02/22/25 02/22/25 02/22/25 Range/Units 15:16 15:16 15:16 WBC 10.73 H (4.50-10.00) 10*3/uL RBC 4.82 (4.40-5.60) 10*6/uL Hgb 15.9 (13.0-17.0) g/dL Hct 45.9 (39.6-50.0) % MCV 95.2 (80.0-97.0) fL MCH 33.0 H (27.0-32.0) pg MCHC 34.6 (32.0-37.0) g/dL Plt Count 285 (140-440) 10*3/uL MPV 9.4 L (9.5-12.2) fL Immature Gran % (Auto) 0.2 % Neutrophils % 64.9 % Lymphocytes % 25.6 % Monocytes % 5.5 % Eosinophils % 2.7 % Basophils % 1.1 % Immature Gran # 0.02 (0.00-0.04) 10*3/uL Neutrophils # 6.96 (1.80-7.70) 10*3/uL Lymphocytes # 2.75 (0.90-5.00) 10*3/uL Monocytes # 0.59 (0.20-1.00) 10*3/uL Eosinophils # 0.29 (0.04-0.35) 10*3/uL Basophils # 0.12 H (0.00-0.10) 10*3/uL Sodium 142 (137-145) mmol/L Potassium 3.8 (3.5-5.1) mmol/L Chloride 105 (98-107) mmol/L Carbon Dioxide 22 (22-30) mmol/L Anion Gap 15 mmol/L BUN 5 L (9-20) mg/dL Creatinine 0.57 L (0.66-1.25) mg/dL Est GFR (CKD-EPI)AfAm >90 (>60 ml/min/1.73 sqM) Est GFR (CKD-EPI)NonAf >90 (>60 ml/min/1.73 sqM) Glucose 91 (74-99) mg/dL Lactic Ac Sepsis Rflx Plasma Lactic Acid Jimbo 2.5 H* (0.7-2.0) mmol/L Calcium 9.2 (8.4-10.2) mg/dL Magnesium 2.1 (1.6-2.3) mg/dL Total Bilirubin 0.5 (0.2-1.3) mg/dL AST 37 (17-59) U/L ALT 21 (4-49) U/L Alkaline Phosphatase 119 (38-126) U/L Total Protein 7.5 (6.3-8.2) g/dL Albumin 4.6 (3.5-5.0) g/dL Serum Alcohol 230 H* mg/dL 02/22/25 02/22/25 02/22/25 Range/Units 15:55 18:51 20:47 WBC (4.50-10.00) 10*3/uL RBC (4.40-5.60) 10*6/uL Hgb (13.0-17.0) g/dL Hct (39.6-50.0) % MCV (80.0-97.0) fL MCH (27.0-32.0) pg MCHC (32.0-37.0) g/dL Plt Count (140-440) 10*3/uL MPV (9.5-12.2) fL Immature Gran % (Auto) % Neutrophils % % Lymphocytes % % Monocytes % % Eosinophils % % Basophils % % Immature Gran # (0.00-0.04) 10*3/uL Neutrophils # (1.80-7.70) 10*3/uL Lymphocytes # (0.90-5.00) 10*3/uL Monocytes # (0.20-1.00) 10*3/uL Eosinophils # (0.04-0.35) 10*3/uL Basophils # (0.00-0.10) 10*3/uL Sodium (137-145) mmol/L Potassium (3.5-5.1) mmol/L Chloride (98-107) mmol/L Carbon Dioxide (22-30) mmol/L Anion Gap mmol/L BUN (9-20) mg/dL Creatinine (0.66-1.25) mg/dL Est GFR (CKD-EPI)AfAm (>60 ml/min/1.73 sqM) Est GFR (CKD-EPI)NonAf (>60 ml/min/1.73 sqM) Glucose (74-99) mg/dL Lactic Ac Sepsis Rflx Y Y Plasma Lactic Acid Jimbo 2.4 H* (0.7-2.0) mmol/L Calcium (8.4-10.2) mg/dL Magnesium (1.6-2.3) mg/dL Total Bilirubin (0.2-1.3) mg/dL AST (17-59) U/L ALT (4-49) U/L Alkaline Phosphatase (38-126) U/L Total Protein (6.3-8.2) g/dL Albumin (3.5-5.0) g/dL Serum Alcohol mg/dL 02/23/25 Range/Units 00:50 WBC (4.50-10.00) 10*3/uL RBC (4.40-5.60) 10*6/uL Hgb (13.0-17.0) g/dL Hct (39.6-50.0) % MCV (80.0-97.0) fL MCH (27.0-32.0) pg MCHC (32.0-37.0) g/dL Plt Count (140-440) 10*3/uL MPV (9.5-12.2) fL Immature Gran % (Auto) % Neutrophils % % Lymphocytes % % Monocytes % % Eosinophils % % Basophils % % Immature Gran # (0.00-0.04) 10*3/uL Neutrophils # (1.80-7.70) 10*3/uL Lymphocytes # (0.90-5.00) 10*3/uL Monocytes # (0.20-1.00) 10*3/uL Eosinophils # (0.04-0.35) 10*3/uL Basophils # (0.00-0.10) 10*3/uL Sodium (137-145) mmol/L Potassium (3.5-5.1) mmol/L Chloride (98-107) mmol/L Carbon Dioxide (22-30) mmol/L Anion Gap mmol/L BUN (9-20) mg/dL Creatinine (0.66-1.25) mg/dL Est GFR (CKD-EPI)AfAm (>60 ml/min/1.73 sqM) Est GFR (CKD-EPI)NonAf (>60 ml/min/1.73 sqM) Glucose (74-99) mg/dL Lactic Ac Sepsis Rflx Plasma Lactic Acid Jimbo 2.0 (0.7-2.0) mmol/L Calcium (8.4-10.2) mg/dL Magnesium (1.6-2.3) mg/dL Total Bilirubin (0.2-1.3) mg/dL AST (17-59) U/L ALT (4-49) U/L Alkaline Phosphatase (38-126) U/L Total Protein (6.3-8.2) g/dL Albumin (3.5-5.0) g/dL Serum Alcohol mg/dL Disposition <Jermain Davison - Last Filed: 02/22/25 19:13> Is patient prescribed a controlled substance at d/c from ED?: No <Marcelino Renteria - Last Filed: 02/23/25 03:02> Clinical Impression: Alcohol intoxication, Suicidal ideation Disposition: HOME SELF-CARE Condition: Fair Instructions (If sedation given, give patient instructions): Abuse of Alcohol (ED) Referrals: None,Stated [Primary Care Provider] - 1-2 days
[2025-02-22] MEDS: LORazepam 1 MG/0.5 ML VIAL IM STA (14:54)
[2025-02-22 15:26] LABS: Basophils # (A) 0.12 10*3/uL (0.00-0.10); Basophils % (A) 1.1 %; Eosinophils # (A) 0.29 10*3/uL (0.04-0.35); Eosinophils % (A) 2.7 %; HCT 45.9 % (39.6-50.0); HGB 15.9 g/dL (13.0-17.0); Lymphocytes # (A) 2.75 10*3/uL (0.90-5.00); Lymphocytes % (A) 25.6 %; MCHC 34.6 g/dL (32.0-37.0); MCV 95.2 fL (80.0-97.0); Mean Platelet Volume 9.4 fL (9.5-12.2); Monocytes # (A) 0.59 10*3/uL (0.20-1.00); Monocytes % (A) 5.5 %; Neutrophils # (A) 6.96 10*3/uL (1.80-7.70); Neutrophils % (A) 64.9 %; Platelet Count 285 10*3/uL (140-440); RBC 4.82 10*6/uL (4.40-5.60); RDW 13.2 % (11.5-14.5); WBC 10.73 10*3/uL (4.50-10.00)
[2025-02-22 15:38] LABS: ALT 21 U/L (4-49); AST 37 U/L (17-59); African American GFR (CKD) >90 (>60 ml/min/1.73 sqM); Albumin 4.6 g/dL (3.5-5.0); Alkaline Phosphatase 119 U/L (38-126); Anion Gap 15 mmol/L; Blood Urea Nitrogen 5 mg/dL (9-20); Calcium 9.2 mg/dL (8.4-10.2); Carbon Dioxide 22 mmol/L (22-30); Chloride 105 mmol/L (98-107); Glucose 91 mg/dL (74-99); Magnesium 2.1 mg/dL (1.6-2.3); Non-African American GFR(CKD) >90 (>60 ml/min/1.73 sqM); Potassium 3.8 mmol/L (3.5-5.1); Sodium 142 mmol/L (137-145); Total Bilirubin 0.5 mg/dL (0.2-1.3); Total Protein 7.5 g/dL (6.3-8.2)
[2025-02-22 15:54] LABS: Alcohol 230 mg/dL
[2025-02-22] MEDS: SODIUM CHLORIDE 0.9% 1,000 ML IV STA (17:08)
[2025-02-22 17:44] VITALS: RESP 18
[2025-02-23 03:00] VITALS: BP 113/60; PULSE 74
== END 2025-02-23 03:15 | disposition home or self-care (01) ==
LOC: EC 14:31
DX: F10.129 Alcohol abuse with intoxication, unspecified (principal); R45.851 Suicidal ideations; F17.200 Nicotine dependence, unspecified, uncomplicated
CPT/HCPCS: 36415; 93005; 80053; 83605 ×2; 83735; 85025; 99285; 96372; 96360; G0480; J2060; 80320

== ENCOUNTER 2025-03-03 16:03 | Emergency (ER) | payer OTHER ==
--- NOTE | 2025-03-03 17:06 | ED ---
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 ROS Other: All systems not noted in ROS Statement are negative. Past Medical History Past Medical History: No Reported History, CVA/TIA, Hearing Disorder / Deafness, Myocardial Infarction ([place]) Additional Past Medical History / Comment(s): patient states he's had 2 strokes and 2 heart attacks. States he has never followed up with any physicians.right sided hearing loss Last Myocardial Infarction Date:: unknown History of Any Multi-Drug Resistant Organisms: None Reported Past Surgical History: No Surgical Hx Reported Past Anesthesia/Blood Transfusion Reactions: No Reported Reaction Past Psychological History: No Psychological Hx Reported Smoking Status: Current every day smoker Past Alcohol Use History: Daily, Heavy Past Drug Use History: None Reported - Past Family History Mother Family Medical History: Cancer Additional Family Medical History / Comment(s): breast and ovarian General Exam Limitations: no limitations General appearance: alert, in no apparent distress, appears intoxicated Head exam: Present: atraumatic, normocephalic, normal inspection Eye exam: Present: normal appearance, PERRL, EOMI. Absent: scleral icterus, conjunctival injection, periorbital swelling ENT exam: Present: normal exam, mucous membranes moist Neck exam: Present: normal inspection. Absent: tenderness, meningismus, lymphadenopathy Respiratory exam: Present: normal lung sounds bilaterally. Absent: respiratory distress, wheezes, rales, rhonchi, stridor Cardiovascular Exam: Present: regular rate, normal rhythm, normal heart sounds. Absent: systolic murmur, diastolic murmur, rubs, gallop, clicks GI/Abdominal exam: Present: soft, normal bowel sounds. Absent: distended, tenderness, guarding, rebound, rigid Extremities exam: Present: normal inspection, full ROM, normal capillary refill. Absent: tenderness, pedal edema, joint swelling, calf tenderness Back exam: Present: normal inspection Neurological exam: Present: alert, oriented X3, CN II-XII intact Psychiatric exam: Present: normal affect, normal mood Skin exam: Present: warm, dry, intact, normal color. Absent: rash Course Vital Signs 03/03/25 03/03/25 16:09 18:30 Temperature 97.9 F Pulse Rate 82 80 Respiratory 16 18 Rate Blood Pressure 150/81 135/88 O2 Sat by Pulse 95 98 Oximetry - Reevaluation(s) Reevaluation #1: 03/03/25 18:36 Medical records reviewed Reevaluation #2: 03/03/25 18:36 Patient symptoms continue to improve here in the ER awake and alert Reevaluation #3: 03/03/25 18:36 Patient informed of results questions answered Reevaluation #4: Was pt. sent in by a medical professional or institution (, PA, INTEGRATED MARKETING INTERN, urgent care, hospital, or [place] [facility]...) When possible be specific @ -no Did you speak to anyone other than the patient for history (EMS, parent, family, police, friend...)? What history was obtained from this source @ -no Did you review nursing and triage notes (agree or disagree)? Why? @ -agree Are old charts reviewed (outside hosp., previous admission, EMS record, old EKG, old radiological studies, urgent care reports/EKG's, [place] [facility] records)? Report findings @ -yes Differential Diagnosis (chest pain, altered mental status, abdominal pain women, abdominal pain men, vaginal bleeding, weakness, fever, dyspnea, syncope, headache, dizziness, GI bleed, back pain, seizure, CVA, palpatations, mental health, musculoskeletal)? @ -prior EKG interpreted by me (3pts min.). @ -yes X-rays interpreted by me (1pt min.). @ -yes negative for acute disease CT interpreted by me (1pt min.). @ -no U/S interpreted by me (1pt. min.). @ -no What testing was considered but not performed or refused? (CT, X-rays, U/S, labs)? Why? @ -none What meds were considered but not given or refused? Why? @ -none Did you discuss the management of the patient with other professionals (professionals i.e. Dr., PA, INTEGRATED MARKETING INTERN, lab, RT, psych nurse, social media specialist, storage solutions architect, teacher, surveillance dual rate officer, home health care case manager)? Give summary @ -no Was smoking cessation discussed for >3mins.? @ -no Was critical care preformed (if so, how long)? @ -no Were there social determinants of health that impacted care today? How? (Homelessness, low income, unemployed, alcoholism, drug addiction, transportation, low edu. Level, literacy, decrease access to med. care, [place] [facility], rehab)? @ -none Was there de-escalation of care discussed even if they declined (Discuss DNR or withdrawal of care, Hospice)? DNR status @ -no What co-morbidities impacted this encounter? (DM, HTN, Smoking, COPD, CAD, Cancer, CVA, ARF, Chemo, Hep., AIDS, mental health diagnosis, sleep apnea, morbid obesity)? @ -none Was patient admitted / discharged? Hospital course, mention meds given and route, prescriptions, significant lab abnormalities, going to OR and other pertinent info. @ - Undiagnosed new problem with uncertain prognosis? @ -no Drug Therapy requiring intensive monitoring for toxicity (Heparin, Nitro, Insulin, Cardizem)? @ -no Were any procedures done? @ -no Diagnosis/symptom? @ - Acute, or Chronic, or Acute on Chronic? @ -Acute Uncomplicated (without systemic symptoms) or Complicated (systemic symptoms)? @ -Complicated Side effects of treatment? @ -no Exacerbation, Progression, or Severe Exacerbation? @ -exacerbation Poses a threat to life or bodily function? How? (Chest pain, USA, [place], pneumonia, PE, COPD, DKA, ARF, appy, cholecystitis, CVA, Diverticulitis, Homicidal, Suicidal, threat to staff... and all critical care pts) @ -yes Reevaluation #5: Differential Altered Mental Status: Hypoglycemia, DKA, hypercapnia, ETOH, overdose, CO poisoning, trauma, myxedema coma, HTN encephalopathy, infection, encephalitis, psychosis, intercranial hemorrhage, hepatic encephalopathy, meningitis, CVA, this is not meant to be an all-inclusive list Medical Decision Making - Medical Decision Making 49 male to ER acute alcohol intoxication with improvement throughout ER stay patient can be discharged home Disposition Clinical Impression: Alcohol intoxication Disposition: HOME SELF-CARE Condition: Fair Instructions (If sedation given, give patient instructions): Alcohol Intoxication (ED) Is patient prescribed a controlled substance at d/c from ED?: No Referrals: None,Stated [Primary Care Provider] - 1-2 days Time of Disposition: 19:00
[2025-03-03 18:31] VITALS: RESP 18
[2025-03-03 23:34] VITALS: BP 127/82; PULSE 98; TEMP 98.1
== END 2025-03-03 23:37 | disposition home or self-care (01) ==
LOC: EC 16:03
DX: F10.129 Alcohol abuse with intoxication, unspecified (principal); F17.200 Nicotine dependence, unspecified, uncomplicated; Y90.9 Presence of alcohol in blood, level not specified
CPT/HCPCS: 99284

== ENCOUNTER 2025-03-07 23:00 | Emergency (ER) | payer OTHER ==
[2025-03-08] MEDS: NICOTINE 14MG/24HR PATCH TRANSDERM STA (02:10)
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
[2025-03-08 12:37] VITALS: BP 136/87; PULSE 78; RESP 18; TEMP 97.8
== END 2025-03-08 12:43 | disposition home or self-care (01) ==
LOC: EC 23:00
DX: R45.851 Suicidal ideations (principal); F10.129 Alcohol abuse with intoxication, unspecified; Z86.73 Personal history of transient ischemic attack (TIA), and cerebral infarction without residual deficits; F17.200 Nicotine dependence, unspecified, uncomplicated; Y90.9 Presence of alcohol in blood, level not specified; V18.0XXA Pedal cycle driver injured in noncollision transport accident in nontraffic accident, initial encounter
CPT/HCPCS: 82075; 99285; S4990